=== PATIENT | female | born 1930 | race Caucasian/White ===

== ENCOUNTER → 2016-06-22 | Outpatient (CLI) | payer MEDICARE, BC ==
[~2016-06-22] MED LIST: /PANT40TA OR; /VERA40TA OR; AMOX875T OR; BENI20TA11 OR; CALCGRA15 PO; ESTRADIOL PV; LASI40TA PO; MULTTAB4 PO; Oxygen; PRED10TA2 PO; PROL60SO SC; ROSU10TA OR; SYNT75TA OR; SYSTSOL5 OU; TYLE325T5 PO; VITAD1000T PO; ZITH500T PO; nystatin powder TOP
[2016-06-22 18:05] LABS: CALCIUM LEVEL 9.1 MG/DL (8.8-10.2); CREATININE FOR GFR 1.5 MG/DL (0.55-1.02); GLOMERULAR FILTRATION RATE 35.1 (>32); POTASSIUM SERUM 4.1 MEQ/L (3.5-5.1)
== END ==
LOC: M WUC 11:31
PROVIDERS: ATTEND Internal Medicine Endocrinology, Diabetes & Metabolism
DX: M81.0 Age-related osteoporosis without current pathological fracture (principal); E55.9 Vitamin D deficiency, unspecified

== ENCOUNTER → 2016-12-14 | Outpatient (CLI) | payer MEDICARE, BC ==
[~2016-12-14] MED LIST changes: -/PANT40TA OR; +/PANT40TA PO; +ELIQ2.5T PO; +ELIQ5TAB PO; +FURO20TA2 PO; -ROSU10TA OR; +ROSU10TA PO; -SYNT75TA OR; +SYNT75TA PO; +SYST1SOL OU; +VERA1TAB11 PO; +VITMTA PO
[2016-12-14 13:44] LABS: BASO % 0.6 % (0.0-1.0); EOS # 0.1 K/mm3 (0.0-0.50); EOS % 1.6 % (0.0-3.0); LARGE UNSTAINED CELL # 0.2 K/mm3 (0.0-0.4); LARGE UNSTAINED CELL % 2.7 % (0.0-4.0); LYMPH # 1.4 K/mm3 (1.5-4.5); LYMPH % 19.9 % (24.0-44.0); MEAN CORPUSCULAR HGB CONC 33.3 g/dl (32.0-36.5); MONO # 0.5 K/mm3 (0.0-0.8); MONO % 7.6 % (0.0-5.0); NEUTROPHILS # 4.6 K/mm3 (1.8-7.7); NEUTROPHILS % 67.6 % (36.0-66.0); PLATELET COUNT, AUTOMATED 210 k/mm3 (150-450); WHITE BLOOD COUNT 6.8 K/mm3 (4.0-10.0)
[2016-12-14 13:56] LABS: ALBUMIN 3.8 GM/DL (3.2-5.2); ALBUMIN/GLOBULIN RATIO 1.06 (1.00-1.93); BILIRUBIN,TOTAL 0.5 MG/DL (0.2-1.0); CALCIUM LEVEL 9.6 MG/DL (8.8-10.2); CREATININE FOR GFR 1.17 MG/DL (0.55-1.02); FREE T4 1.27 NG/DL (0.76-1.46); GLOMERULAR FILTRATION RATE 46.7 (>32); POTASSIUM SERUM 4.4 MEQ/L (3.5-5.1); TOTAL PROTEIN 7.4 GM/DL (6.4-8.2)
== END ==
LOC: M WUC 09:46
PROVIDERS: ATTEND Family Medicine
DX: E03.9 Hypothyroidism, unspecified (principal); I10 Essential (primary) hypertension; I65.23 Occlusion and stenosis of bilateral carotid arteries; Z86.73 Personal history of transient ischemic attack (TIA), and cerebral infarction without residual deficits

== ENCOUNTER → 2016-12-14 | Outpatient (CLI) | payer MEDICARE, BC ==
[2016-12-14 13:32] LABS: BASO # 0.1 K/mm3 (0.0-0.2); EOS # 0.1 K/mm3 (0.0-0.50); EOS % 1.8 % (0.0-3.0); LARGE UNSTAINED CELL # 0.1 K/mm3 (0.0-0.4); LARGE UNSTAINED CELL % 2.2 % (0.0-4.0); LYMPH # 1.2 K/mm3 (1.5-4.5); LYMPH % 19.4 % (24.0-44.0); MEAN CORPUSCULAR HEMOGLOBIN 33.5 pg (27.0-33.0); MEAN CORPUSCULAR HGB CONC 33.8 g/dl (32.0-36.5); MEAN CORPUSCULAR VOLUME 99.1 fl (80.0-96.0); MONO # 0.5 K/mm3 (0.0-0.8); MONO % 7.6 % (0.0-5.0); NEUTROPHILS # 4.3 K/mm3 (1.8-7.7); PLATELET COUNT, AUTOMATED 195 k/mm3 (150-450); WHITE BLOOD COUNT 6.4 K/mm3 (4.0-10.0)
[2016-12-14 13:51] LABS: ALBUMIN 3.8 GM/DL (3.2-5.2); ALBUMIN/GLOBULIN RATIO 1.03 (1.00-1.93); BILIRUBIN,TOTAL 0.6 MG/DL (0.2-1.0); CALCIUM LEVEL 9.7 MG/DL (8.8-10.2); CREATININE FOR GFR 1.16 MG/DL (0.55-1.02); GLOMERULAR FILTRATION RATE 47.2 (>32); POTASSIUM SERUM 4.3 MEQ/L (3.5-5.1); TOTAL PROTEIN 7.5 GM/DL (6.4-8.2)
== END ==
LOC: M WUC 09:50
PROVIDERS: ATTEND Psychiatry & Neurology Neurology
DX: I65.23 Occlusion and stenosis of bilateral carotid arteries (principal); Z86.73 Personal history of transient ischemic attack (TIA), and cerebral infarction without residual deficits

== ENCOUNTER → 2016-12-14 | Outpatient (CLI) | payer MEDICARE, BC ==
[2016-12-14 13:37] LABS: CALCIUM LEVEL 9.9 MG/DL (8.8-10.2)
== END ==
LOC: M WUC 09:40
PROVIDERS: ATTEND Internal Medicine Endocrinology, Diabetes & Metabolism
DX: M81.0 Age-related osteoporosis without current pathological fracture (principal); E55.9 Vitamin D deficiency, unspecified

== ENCOUNTER → 2017-01-23 | Outpatient (REF) | payer MEDICARE, BC ==
[~2017-01-23] MED LIST changes: +LEVO50TA5 PO; +MAG400TA PO
[2017-01-23 17:45] LABS: BASO # 0.1 10^3/uL (0.0-0.2); BASO % 0.8 % (0.0-1.0); EOS # 0.1 10^3/uL (0.0-0.50); EOS % 1.5 % (0.0-3.0); IMMATURE GRANULOCYTE % 0.5 % (0-0); LYMPH # 1.2 10^3/uL (1.5-4.5); MEAN CORPUSCULAR HEMOGLOBIN 32.6 pg (27.0-33.0); MEAN CORPUSCULAR HGB CONC 32.3 g/dl (32.0-36.5); MONO # 0.7 10^3/uL (0.0-0.8); NEUTROPHILS # 4.5 10^3/uL (1.8-7.7); NEUTROPHILS % 69.2 % (36.0-66.0); PLATELET COUNT, AUTOMATED 184 10^3/uL (150-450); RED CELL DISTRIBUTION WIDTH 13.6 % (11.5-14.5); WHITE BLOOD COUNT 6.5 10^3/uL (4.0-10.0)
[2017-01-23 18:08] LABS: ALBUMIN 3.6 GM/DL (3.2-5.2); ALBUMIN/GLOBULIN RATIO 1.13 (1.00-1.93); BILIRUBIN,TOTAL 0.5 MG/DL (0.2-1.0); CALCIUM LEVEL 7.8 MG/DL (8.8-10.2); CREATININE FOR GFR 1.29 MG/DL (0.55-1.02); GLOMERULAR FILTRATION RATE 41.7 (>32); TOTAL PROTEIN 6.8 GM/DL (6.4-8.2)
== END ==
LOC: M LABDRAW1 15:49
PROVIDERS: ATTEND Family Medicine
DX: I48.91 Unspecified atrial fibrillation (principal)

== ENCOUNTER 2017-02-07 12:14 | Inpatient (IN) | payer MEDICARE, BC ==
[~2017-02-07] VITALS: Ht 162.6 cm; Wt 53.4 kg
[~2017-02-07 12:14] MED LIST changes: -ELIQ2.5T PO; -ELIQ5TAB PO; -FURO20TA2 PO; -LEVO50TA5 PO; -MAG400TA PO; -SYST1SOL OU; -VERA1TAB11 PO; -VITMTA PO
[2017-02-07] MEDS ORDERED: ELIQ5TAB PO (12:29)
[2017-02-07] MEDS ORDERED: NS 500 ML IV ONE (13:00)
--- NOTE | 2017-02-07 13:30 | REP ---
CT of the brain without IV contrast. Comparisons are 02/10/2010 02/09/2010. There is no hemorrhage. There is no mass effect, edema, or midline shift. There is an old right frontal lobe infarct, unchanged. There is an old left caudate lobe lacunar infarct, unchanged. The ventricles and sulci are enlarged compatible with diffuse volume loss. This is unchanged. Ventricles are normal size and midline. The cortical stripe is otherwise unremarkable. Impression: There is no hemorrhage, acute infarct or mass. There is an old right frontal lobe infarct and old left caudate ganglion infarct. There is diffuse volume loss. Signed by Petros Corcoran MD 02/07/2017 01:21 P
[2017-02-07 13:34] LABS: VENOUS BASE EXCESS 4.3 (-2.0-2.0); VENOUS O2 SATURATION 48.1 % (60.0-80.0); VENOUS PARTIAL PRESSURE CO2 44.7 mmHg (38.0-50.0); VENOUS PARTIAL PRESSURE O2 28.6 mmHg (30.0-50.0); VENOUS STANDARD HCO3 27.3 MEQ/L; VENOUS TOTAL CO2 30.5 MEQ/L (24.0-28.0)
[2017-02-07 13:35] LABS: BASO % 0.6 % (0.0-1.0); EOS % 0.4 % (0.0-3.0); IMMATURE GRANULOCYTE % 0.3 % (0-0); LYMPH # 0.8 10^3/uL (1.5-4.5); LYMPH % 11.2 % (24.0-44.0); MEAN CORPUSCULAR HEMOGLOBIN 32.3 pg (27.0-33.0); MEAN CORPUSCULAR HGB CONC 32.2 g/dl (32.0-36.5); MEAN CORPUSCULAR VOLUME 100.3 fl (80.0-96.0); MONO # 0.7 10^3/uL (0.0-0.8); NEUTROPHILS # 5.5 10^3/uL (1.8-7.7); NEUTROPHILS % 77.5 % (36.0-66.0); PLATELET COUNT, AUTOMATED 163 10^3/uL (150-450); WHITE BLOOD COUNT 7.1 10^3/uL (4.0-10.0)
[2017-02-07 14:00] LABS: ALBUMIN 3.8 GM/DL (3.2-5.2); ALBUMIN/GLOBULIN RATIO 1.15 (1.00-1.93); ALKALINE PHOSPHATASE 54 U/L (45-117); ALT/SGPT 22 U/L (12-78); ANION GAP 12 MEQ/L (8-16); AST/SGOT 22 U/L (7-37); BILIRUBIN,DIRECT 0.3 MG/DL (0.0-0.2); BILIRUBIN,TOTAL 0.7 MG/DL (0.2-1.0); BLOOD UREA NITROGEN 29 MG/DL (7-18); CALCIUM LEVEL 9.6 MG/DL (8.8-10.2); CARBON DIOXIDE LEVEL 29 MEQ/L (21-32); CHLORIDE LEVEL 100 MEQ/L (98-107); CREATININE FOR GFR 1.51 MG/DL (0.55-1.02); GLOMERULAR FILTRATION RATE 34.7 (>32); GLUCOSE, FASTING 110 MG/DL (83-110); POTASSIUM SERUM 3.5 MEQ/L (3.5-5.1); SODIUM LEVEL 141 MEQ/L (136-145); TOTAL PROTEIN 7.1 GM/DL (6.4-8.2)
--- NOTE | 2017-02-07 14:27 | REP ---
Chest AP and lateral views, patient sitting: Signed by Petros Corcoran MD 02/07/2017 02:19 P
[2017-02-07] MEDS ORDERED: FUROSEMIDE 40 MG/4 ML VIAL (J1940) IV ONE (14:45)
[2017-02-07 14:55] LABS: METHADONE URINE NEGATIVE (NEGATIVE)
[2017-02-07] MEDS ORDERED: ACETAMINOPHEN TAB 650MG DOSE (2X325MG) PO PRN ×2 (15:30→18:15)
[2017-02-07 15:49] LABS: FERRITIN 123 NG/ML (8-252); PERCENT SATURATION 21.7 % (13.2-45.0); TOTAL IRON BINDING CAPACITY 267 UG/DL (250-450)
[2017-02-07] MEDS ORDERED: VERA1TAB11 PO (16:03)
[2017-02-07] MEDS ORDERED: FURO20TA2 PO (16:03)
[2017-02-07] MEDS ORDERED: VITMTA PO (16:03)
[2017-02-07] MEDS ORDERED: ELIQ2.5T PO (16:03)
[2017-02-07] MEDS ORDERED: SYST1SOL OU (16:03)
[2017-02-07] MEDS ORDERED: LEVALBUTEROL 1.25 MG/0.5 ML CONCENTRATE NEB INH PRN (16:15)
[2017-02-07] MEDS ORDERED: POLYVINYL ALCOHOL OPHTH SOLN 15 ML(LIQUITEARS) OU PRN (16:15)
--- NOTE | 2017-02-07 16:43 | REP ---
CT of the chest without IV contrast: Comparison is 09/13/2012. There is a large right pleural effusion and a moderate left pleural effusion. There are ground-glass densities in the middle lobe and lingula compatible with acute infiltrates. There is diffuse interstitial coarsening. This was also present previously and could represent fibrosis, interstitial edema, or combination. There is subpleural honeycombing in the left lower lobe laterally compatible with fibrosis. This is present previously but has worsened. Cardiac size is enlarged. There is no pericardial effusion. There is no mediastinal adenopathy or mass. Thoracic aorta is unremarkable. The visualized upper abdominal contents are unremarkable except for splenic calcified granulomas. Impression: Large right pleural effusion, moderate left pleural effusion. Ground-glass densities in the middle lobe and lingula compatible with alveolar infiltrates. Interstitial coarsening compatible with interstitial infiltrates versus fibrosis. Some pleural honeycombing in the right lower lobe compatible with fibrosis. Cardiomegaly. Signed by Petros Corcoran MD 02/07/2017 04:34 P
[2017-02-07] MEDS ORDERED: FUROSEMIDE 20 MG/2 ML VIAL (J1940) IV SCH (17:00)
[2017-02-07 17:24] VITALS: BP 125/69
[2017-02-07 18:11] LABS: FOLATE > 24.0 NG/ML (>5.4); VITAMIN B12 LEVEL > 2000 PG/ML (247-911)
[2017-02-07] MEDS: LACTOBACILLUS ACIDOPHILUS CAP (BACID) PO SCH (18:11)
[2017-02-07] MEDS: cefTRIAXone SOD 1 GM in D5W 50 ML IV SCH (18:12)
[2017-02-07] MEDS ORDERED: BISACODYL 5 MG TAB PO PRN (18:15)
[2017-02-07] MEDS ORDERED: ONDANSETRON 4MG/2ML VIAL (J2405) IV PRN (18:15)
[2017-02-07] MEDS ORDERED: POTASSIUM CHLORIDE 10 MEQ SR TABLET PO ONE (18:45)
[2017-02-07 18:48] LABS: MAGNESIUM LEVEL 1.2 MG/DL (1.8-2.4)
[2017-02-07 19:09] LABS: RETIC HEMOGLOBIN EQUIVALENT 36.6 pg (24-36); RETICULOCYTE % 1.7 % (0.5-1.5)
[2017-02-07 19:15] LABS: FREE T4 2.24 NG/DL (0.76-1.46)
[2017-02-07 19:45] LABS: ERYTHROCYTE SEDIMENTATION RATE 41 mm/hr (0-42)
[2017-02-07 20:00] VITALS: BP 114/56
[2017-02-07] MEDS ORDERED: SLF 3 ML SYR IV PRN (20:45)
[2017-02-07] MEDS: APIXABAN 2.5 MG TAB (ELIQUIS) PO SCH (20:57)
[2017-02-07] MEDS: SENOKOT S TAB PO SCH (20:57)
[2017-02-07] MEDS: SLF 3 ML SYR IV SCH (20:58)
--- NOTE | 2017-02-07 21:53 | HPE ---
DATE OF ADMISSION: 02/07/2017 Time patient was seen was at 5:30 p.m. Patient's primary care provider is Dr. Evelyn Lainez. Pumping Supervisor is Dr. Parth Dixon. CHIEF COMPLAINT: Shortness of breath and confusion. HISTORY OF PRESENT ILLNESS: 87-year-old female with past medical history of CVA from 2005, osteoporosis, right shoulder fracture, history of pneumonia, atrial fibrillation, intracranial hemorrhage, hypothyroidism, hypertension, gastroesophageal reflux disease (GERD), hiatal hernia, presented with shortness of breath and confusion. Per patient, she has been having trouble breathing for the past 3 days[address] She did see Dr. Dixon yesterday and recommended to wear an event monitor. She was going to pick it up today, however, she was walking up a few steps and got confused and then ended up in the emergency room. Per patient, she never passed out and she did not fall. She recovered momentarily in the emergency room after she was placed on oxygen. Patient's daughter also stated she has been having trouble breathing for at least a few months and had used oxygen 3 years ago when she had pneumonia back in roughly 2012. She also has been coughing for a few days and the cough was mostly a dry cough. Otherwise, she denies any fever or chills, any chest pain, any abdominal pain, nausea, vomiting, diarrhea, constipation, any blood in the urine or stool, any increased swelling in the lower extremities. ALLERGIES: No known drug allergies. HOME MEDICATIONS: Including: - Tylenol 650 mg one tablet by mouth every 4 hours as needed - Eliquis 2.5 mg one tablet by mouth twice a day - calcium citrate two tablets by mouth three times a day - furosemide 20 mg one tablet by mouth daily - Synthroid 75 mcg one tablet by mouth daily - multivitamin one tablet by mouth daily - Protonix 40 mg one tablet by mouth daily - polyethylene glycol one droplet in each eye four times a day as needed - Prolia one every 6 months - Crestor 10 mg one tablet by mouth daily - verapamil 180 mg one tablet by mouth daily - vitamin D 5000 units one tablet by mouth PAST MEDICAL HISTORY: Includin. Osteoporosis. 2. 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 3. Right shoulder fracture. 4. History of pneumonia. 5. Atrial fibrillation. 6. Intracranial bleed. 7. Hypothyroidism. 8. Hypertension. 9. GERD. 10. Hiatal hernia. PAST SURGICAL HISTORY: Includin. Hysterectomy. 2. Left leg varicose vein repair. 3. Bladder suspension in 1993. 4. Unspecified cartilage removal of the right nose. 5. Right cataract repair in 2000. 6. Left cataract repair in 1999. 7. Adhesiolysis, bilateral salpingo-oophorectomy and appendectomy back in 1998. 8. 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 SOCIAL HISTORY: Patient lives with her daughter. Denies any smoking, drinking, or recreational drug use. Do not resuscitate status: Patient's proxy is her grandson. However, her daughter is adding to the proxy. FAMILY HISTORY: Patient's mother at 93, father in his 60s, had coronary artery disease and myocardial infarction (ME). REVIEW OF SYSTEMS: GENERAL: Patient admits to some weight changes, however daughter disagrees. Otherwise, denies any fever or chills. Denies any sick contact or recent traveling. HEENT: Denies any changes with vision, smell, hearing or taste. However, patient does have slurred speech from previous CVA. CARDIOVASCULAR: Denies any chest pain, trouble breathing. Denies any palpitations or racing heart beat. Patient, however, has seen Dr. Dixon just yesterday and was told to have an event recorder done today. PULMONARY: Admits to shortness of breath for a few months and got worse for the past 3 days. Admits to cough. Denies any sputum. GASTROINTESTINAL (GI): Denies any abdominal pains, nausea, vomiting, diarrhea, or constipation. GENITOURINARY (): Denies any problem with urination, dysuria, blood in the urine. MUSCULOSKELETAL: Denies any pain anywhere. ENDOCRINE: Denies any polydipsia or polyuria or any heat intolerance. Patient feels cold all the time. SKIN: Denies any moles, ulcerations, lumps, or bumps anywhere. Denies any rash. PSYCHIATRIC: Denies any anxiety or depression. NEUROLOGIC: Denies any new changes in sensation or any weakness on any one side of her body. PHYSICAL EXAMINATION: VITAL SIGNS: Temperature 98.9, pulse 106, respirations 108, blood pressure 116/71, oxygen was saturating at 94% on 2 liters of nasal cannula. During the interview, patient was off nasal cannula and was able to carry on normal conversation without difficulties. GENERAL: Patient is a thin-looking elderly female who was alert, awake, oriented times three. Appears to be in mild distress, lying comfortably in bed with head elevated at 30 degrees. HEENT: Normocephalic, atraumatic. Extraocular motors intact. Mucous moist. Neck supple. No neck lymphadenopathy. CARDIOVASCULAR: Jugular venous distention (JVD) was noted all the way to the lower jaw bilaterally. Otherwise, patient was having irregular heart beat and has an at least 3/6 systolic heart murmur. LUNGS: Reduced breathing sounds in bilateral bases and dulled percussion in bilateral base. ABDOMEN: Positive bowel sounds. Soft, nontender, nondistended. No peritoneal signs. No ecchymosis. EXTREMITIES: Trace pitting edema in bilateral lower extremities. SKIN: Warm and dry. NEUROLOGIC: Cranial nerves II-XII intact except for the slurred speech. LABORATORY DATA: WBC 7.1, hemoglobin 10.5, hematocrit 32.6, with a platelet count of 162, an MCV of 100.3. Sodium 141, potassium 3.5, chloride 100, bicarbonate 29, anion gap was 12, BUN 29, creatinine 1.51, GFR 34.7, fasting glucose 110, calcium 9.6, iron 58, TIBC 267, transferrin percentage was 21.7, ferritin 128, total bilirubin 0.7, direct bilirubin 0.3, AST 22, ALT 22, alkaline phosphatase 54, ammonia level less than 10, CK 98, CK-MB 2.1, troponin 0.02, BNP was very elevated 10,746, protein 7.1, albumin 3.8, B12 level was greater than 2000, folate was greater than 24, TSH 1.58, free T4 is pending, reticulocyte count is pending. Urinalysis shows 1+ blood, 2 leukocyte esterase, 53 WBCs, 4 RBCs, 3+ bacteria. Salicylate was less than 1.7. Barbiturate less than 2. Urine drug screen was negative. Methicillin-resistant Staphylococcus aureus (MRSA) screening was pending. Urine culture was pending. Patient had a CT head without contrast. Shows no hemorrhage, no acute infarct or mass. There was an old right frontal lobe infarct and old left caudate ganglion infarct. Patient had a posteroanterior (PA) and lateral chest x-ray shows interstitial markings diffusely coarsened, interval change compatible with pulmonary edema. Patient had a CT of chest, shows large right pleural effusion, moderate left pleural effusion, ground-glass density in the middle lobe and lingula compatible with alveolar infiltrate, interstitial coarsening compatible with interstitial infiltrates versus fibrosis. Some pleural honeycombing in the right lower lobe compatible with fibrosis. Cardiomegaly. ASSESSMENT AND PLAN: 87-year-old female with multiple comorbidities, more significantly CVA with slurred speech as a residual, chronic atrial fibrillation, intracranial bleed, hypothyroidism, hypertension, gastroesophageal reflux disease (GERD), hiatal hernia, osteoporosis, presented with: 1. Altered mental status, likely secondary to possible urinary tract infection (UTI) versus possible pneumonia versus hypoxia from large pleural effusion on the right side. At this point, patient does not have a white count and no fever and no chills. C-reactive protein (CRP) and erythrocyte sedimentation rate (ESR) has been ordered, will follow. Patient was started on Rocephin in the emergency room, will continue. Patient has also been started on Lasix 20 mg IV twice a day, will continue. Will monitor strict intake and output. Continue patient on 2 liters of fluid restriction and restricted sodium. 2. Possible congestive heart failure (CHF) exacerbation with a brain natriuretic peptide (BNP) of 10,746. Patient also has jugular venous distention (JVD), pulmonary edema and pleural effusion. Echocardiogram has been ordered, will followup. She did have a previous echo back in 2012, shows ejection fraction of 65%. Will continue to diurese her. 3. Large right-sided pleural effusion. Will continue to monitor to see if there is reduction with increased diuresis usage. Possibly need thoracentesis if symptom does not improve. 4. Possible community-acquired pneumonia. However, patient does not have any fever or white count. Rocephin has been started empirically for both possible pneumonia and possible urinary tract infection (UTI). Will continue to monitor. 5. Possible urinary tract infection (UTI). Patient does have a positive urinalysis. However, patient does not have any dysuria, burning on urination, or discomfort on urination. Patient, however, does have confusion. Will continue Rocephin for now. If patient has a negative urine culture will stop the Rocephin. 6. Anemia with hemoglobin of 10.5 and MCV of 100.3. Iron study and B12 folate came back negative. Therefore, the macrocytic anemia possibly secondary to underproduction versus chronic disease. Will continue to monitor. 7. Chronic kidney disease stage III with creatinine of 1.5. Baseline is roughly 1.2. Possibly due to cardiorenal syndrome. Continue to monitor. Continue Lasix for now. 8. Right-sided shoulder pain which was chronic from right shoulder fracture. Continue to monitor. Pain medication as needed. 9. Osteoporosis. Continue Prolia outpatient. 10. History of CVA with slurred speech, however no trouble eating. Continue regular food that is sodium restricted and also fluid restricted. 11. History of atrial fibrillation, on Eliquis. Continue to monitor. Patient was scheduled for a Holter monitor, however, she did not go to do it before she got admitted. Therefore, patient will be monitored under telemetry. 12. History of intracranial bleed, stable. Continue to monitor. 13. Hypothyroidism. Continue to monitor. 14. History of hypertension. Continue patient's blood pressure medication with hold parameters. 15. History of gastroesophageal reflux disease (GERD). Continue home proton pump inhibitor (PPI). 16. Deep venous thrombosis (DVT) prophylaxis, on home Eliquis. 17. Fluids, electrolytes, and nutrition. Patient did receive 100 mL bolus in the emergency room, also received Lasix. At this point, patient likely has congestive heart failure (CHF) exacerbation, therefore will hold any IV fluid. Patient's potassium was slightly under goal, will replete. Continue patient on sodium restricted diet and fluid restricted diet. DISPOSITION: Patient likely has congestive heart failure (CHF) exacerbation with pleural effusion on the right side greater than on the left side. Also, possible urinary tract infection (UTI) and possible pneumonia. Will discontinue antibiotic once culture comes back negative and will followup erythrocyte sedimentation rate (ESR) and C-reactive protein (CRP), and there is a possibility for thoracentesis if symptom does not improve. Patient has been discussed with attending doctor, Dr. Renae. My preceptor for this patient encounter was Dr. Heidi Renae. The preceptor was physically present in the building during the encounter and was fully available. As needed, all aspects of the patient interview, examination, medical decision making process, and medical care plan development were reviewed and approved by the preceptor. The preceptor is aware and concurs with the plan as stated in the body of this note and will attest to such by his/her cosignature.
--- NOTE | 2017-02-07 21:56 | ECGEPIP ---
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
[2017-02-07] MEDS ORDERED: HEPARIN SOD (PORCINE) 5000 UNITS/ML VIAL SC SCH (22:00)
[2017-02-07 23:59] VITALS: BP 122/57
[2017-02-08 04:00] VITALS: BP 128/60
[2017-02-08 05:18] LABS: BASO % 0.5 % (0.0-1.0); EOS # 0.1 10^3/uL (0.0-0.50); IMMATURE GRANULOCYTE % 0.4 % (0-0); IONIZED CALCIUM 4.4 MG/DL (4.5-5.3); LYMPH # 0.9 10^3/uL (1.5-4.5); LYMPH % 11.3 % (24.0-44.0); MEAN CORPUSCULAR HEMOGLOBIN 32.1 pg (27.0-33.0); MEAN CORPUSCULAR HGB CONC 31.9 g/dl (32.0-36.5); MEAN CORPUSCULAR VOLUME 100.3 fl (80.0-96.0); MONO # 0.9 10^3/uL (0.0-0.8); MONO % 10.8 % (0.0-5.0); NEUTROPHILS # 6.2 10^3/uL (1.8-7.7); PLATELET COUNT, AUTOMATED 164 10^3/uL (150-450); RED CELL DISTRIBUTION WIDTH 13.8 % (11.5-14.5); WHITE BLOOD COUNT 8.2 10^3/uL (4.0-10.0)
[2017-02-08 05:40] LABS: CALCIUM LEVEL 9.2 MG/DL (8.8-10.2); CREATININE FOR GFR 1.44 MG/DL (0.55-1.02); GLOMERULAR FILTRATION RATE 36.7 (>32); POTASSIUM SERUM 3.9 MEQ/L (3.5-5.1)
[2017-02-08] MEDS: SLF 3 ML SYR IV SCH ×3 (05:48→21:49)
[2017-02-08 05:53] LABS: MAGNESIUM LEVEL 1.1 MG/DL (1.8-2.4)
[2017-02-08] MEDS ORDERED: LEVOTHYROXINE 75MCG TABLET (0.075MG) PO SCH (06:00)
--- NOTE | 2017-02-08 07:53 | REP ---
Portable chest, AP view, the patient semi upright, 06:53 a.m.: Comparison is 02/07/2017. The interstitial infiltrates have significantly worsened, vertically in the right lung. There are now accompanying alveolar infiltrates in the right. The interstitial coarsening in the left lung is unchanged. Cardiac size is enlarged. By CT there are bilateral pleural effusions. Advanced deforming arthropathy of the right shoulder is again noted. Impression: Significantly increasing infiltrates in the right lung. Bilateral pleural effusions by CT. No Signed by Petros Corcoran MD 02/08/2017 07:45 A
[2017-02-08 08:00] VITALS: BP 113/57
[2017-02-08] MEDS ORDERED: FUROSEMIDE 20 MG/2 ML VIAL (J1940) IV ONE (08:00)
[2017-02-08] MEDS ORDERED: MAG SULF 1GM/100ML (MAG RUN) 1 GM in APPROPRIATE DILUENT 1 EA IV ONE ×2 (08:00→09:00)
[2017-02-08] MEDS: SENOKOT S TAB PO SCH ×2 (08:31→21:48)
[2017-02-08] MEDS: ROSUVASTATIN 10 MG TAB (CRESTOR) PO SCH (08:31)
[2017-02-08] MEDS: PANTOPRAZOLE 40MG TAB (PROTONIX) PO SCH (08:31)
[2017-02-08] MEDS: LACTOBACILLUS ACIDOPHILUS CAP (BACID) PO SCH ×3 (08:31→17:26)
[2017-02-08] MEDS: MULTIVITAMINS/MINERALS THERAP 1 TAB PO SCH (08:31)
[2017-02-08] MEDS: APIXABAN 2.5 MG TAB (ELIQUIS) PO SCH ×2 (08:31→21:48)
[2017-02-08] MEDS: VERAPAMIL 180 MG SR TAB PO SCH (08:32)
[2017-02-08] MEDS: VITAMIN D 1,000 INTERNATIONAL UNITS TABLET PO SCH (08:32)
[2017-02-08 10:10] LABS: ERYTHROCYTE SEDIMENTATION RATE 35 mm/hr (0-42)
[2017-02-08] MEDS: AZITHROMYCIN INJ 500 MG, VIAL MATE ADAPTER 1 EACH in D5W 250 ML IV SCH (10:55)
[2017-02-08] MEDS: FUROSEMIDE 20 MG/2 ML VIAL (J1940) IV SCH ×4 (10:55→21:49)
[2017-02-08] MEDS: LIDOCAINE 5% (LIDODERM) PATCH TD SCH (11:20)
[2017-02-08 12:00] VITALS: BP 125/59
--- NOTE | 2017-02-08 13:36 | IPNPDOC ---
Text Note Date of Service The patient was seen on 02/08/17. 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 Patient was seen and examined at the bedside. Patient admits to breathing better today. Denies any fever/chill, chest pain, abdominal pain, nausea, vomiting, diarrhea, constipation, blood in urine or stool. Patient's daughter complaint of her has been having hearing hallucination, she also reported her mother fail again over the past few months and landed on the right shoulder. Objective: Vitals (See below) General: Thin looking elderly female, lying in bed, no acute distress, comfortable, AAOx3 HEENT: NC, AT CVS: Irregular heart beat, + Systolic murmur Lungs: moderate rales b/l Abdomen: Soft, ND, NT Extremities: trace + pitting edema b/l, right shoulder tenderness which is chronic CXR PA/Lat: increased density on the right side Assessment and plan: Altered mental status, likely 2/2 to UTI vs. possible pneumonia vs. hypoxia from pleural effusion and pulmonary edema - Continue started on 02/07/17 Rocephin day 2 - Started 02/08/17 Azithromycin day 1 due to worsening CXR and CRP - Increased Lasix 02/08/17 - Strict Ins/Outs - 2L Fluid restriction, Na restriction Acute decompensated CHF exacerbation - Improved JVD, worsening CXR - Lasix increased - Echo result pending Large right sided pleural effusion - Stable - C/W lasix Possible CAP - C/W Rocephin and azithromycin Possible UTI - Culture was contaminated - C/W Rocephin Anemia, macrocytic - CKD stage III - improving Right shoulder pain with chronic fracture - Lidoderm patch 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 Heaton. GME ATTESTATION My preceptor for this patient encounter was physically present in the building during the encounter and was fully available. As needed, all aspects of the patient interview, examination, medical decision making process, and medical care plan development were reviewed and approved by the preceptor. Preceptor is aware and concurs with the plan as stated in the body of this note and will attest to such by his/her cosignature. VS,Fishbone, I+O VS, Fishbone, I+O Laboratory Tests 02/07/17 13:24 Red Blood Count 3.25 L, Mean Corpuscular Volume 100.3 H, Mean Corpuscular Hemoglobin 32.3, Mean Corpuscular Hemoglobin Concent 32.2, Red Cell Distribution Width 14.0, Neutrophils (%) (Auto) 77.5 H, Lymphocytes (%) (Auto) 11.2 L, Monocytes (%) (Auto) 10.0 H, Eosinophils (%) (Auto) 0.4, Basophils (%) ( Auto) 0.6, Neutrophils # (Auto) 5.5, Lymphocytes # (Auto) 0.8 L, Monocytes # ( Auto) 0.7, Eosinophils # (Auto) 0.0, Basophils # (Auto) 0.0 02/08/17 05:01 Red Blood Count 3.12 L, Mean Corpuscular Volume 100.3 H, Mean Corpuscular Hemoglobin 32.1, Mean Corpuscular Hemoglobin Concent 31.9 L, Red Cell Distribution Width 13.8, Neutrophils (%) (Auto) 76.0 H, Lymphocytes (%) (Auto) 11.3 L, Monocytes (%) (Auto) 10.8 H, Eosinophils (%) (Auto) 1.0, Basophils (%) ( Auto) 0.5, Neutrophils # (Auto) 6.2, Lymphocytes # (Auto) 0.9 L, Monocytes # ( Auto) 0.9 H, Eosinophils # (Auto) 0.1, Basophils # (Auto) 0.0, Calcium Level 9.2 , Total Creatine Kinase 82 Vital Signs Date Time Temp Pulse Resp B/P (MAP) Pulse Ox O2 Delivery O2 Flow Rate FiO2 11/1/17 12:00 97.7 89 20 125/59 (81) 98 Nasal Cannula 3.0 I&O- Last 24 Hours up to 6 AM 02/09/17 06:00 Intake Total 440 ml Output Total 602 ml Balance -162 ml VINNY ESTRADA DO Feb 08, 2017 13:36 ANTONIO HEATON MD Feb 26, 2017 20:35
[2017-02-08 16:00] VITALS: BP 132/53
[2017-02-08] MEDS: cefTRIAXone SOD 1 GM in D5W 50 ML IV SCH (17:26)
[2017-02-08 19:51] VITALS: BP 109/53
[2017-02-08] MEDS: **NOTE PATIENT COMMENT** MISC XX SCH (21:00)
[2017-02-08 21:30] VITALS: BP 112/62
--- NOTE | 2017-02-08 22:21 | ECHO ---
DATE OF PROCEDURE: 02/08/2017 REFERRING PHYSICIAN: Heidi Renae MD PATIENT LOCATION: Room 3225 REASON FOR ECHOCARDIOGRAM: Shortness of breath. 2D MEASUREMENTS: IVS: 0.86 cm LV: 3.7 cm LVPW: 0.92 cm LA: 4.5 cm Aorta: 3.0 cm DOPPLER MEASUREMENTS: Peak velocity across the aortic valve: 0.82 m/s Peak velocity across the LVOT: 0.58 m/s Mitral E: 1.3 Maximum tricuspid valve velocity: 2.8 m/s 2D COMMENTS: 1. Normal left ventricular size, wall thickness and low normal global left ventricular systolic function. The estimated global left ventricular systolic ejection fraction is 55 to 60%. 2. Mildly enlarged left atrium. The right atrium and the right ventricle also appear to be mildly enlarged. 3. The atrial septum appeared to be normal without evidence of defect or shunt. 4. Normal aortic root. 5. Small pericardial effusion was noted. No evidence of cardiac tamponade. Pleural effusion was noted. 6. Mildly calcified aortic valve with normal leaflet excursion. Mildly calcified mitral annulus with normal anterior mitral valve leaflet motion. Normal tricuspid valve and pulmonic valve. The proximal pulmonary artery branches were not well visualized. 7. The inferior vena cava was not well visualized. DOPPLER: It detects mild aortic regurgitation, moderately severe mitral regurgitation and mild to moderate tricuspid regurgitation. The calculated pulmonary artery systolic pressure varied between 40 to 50 mmHg. Assessment of the left ventricular diastolic function was limited. The patient appears to be in atrial fibrillation. IMPRESSION: 1. Low normal global left ventricular systolic function. Assessment of the left ventricular diastolic function was limited in view of the underlying arrhythmias. 2. Aortic valve sclerosis with mild aortic regurgitation. 3. Mitral annulus calcification with mildly enlarged left atrium and moderately severe mitral regurgitation. 4. Mild to moderate tricuspid regurgitation with moderate pulmonary hypertension and dilated right heart chambers. 5. A small pericardial effusion was noted, no evidence of cardiac tamponade. Pleural effusion also noted. Cannot rule out small amount of fluid around the liver. The patient might benefit from an abdomen ultrasound looking for ascites. MTDD
[2017-02-09] VITALS (8 sets, daily range): BP systolic 94–121; BP diastolic 52–88
[2017-02-09] MEDS: FUROSEMIDE 20 MG/2 ML VIAL (J1940) IV SCH ×4 (02:37→17:33)
[2017-02-09 05:19] LABS: BASO # 0.1 10^3/uL (0.0-0.2); BASO % 0.5 % (0.0-1.0); EOS # 0.2 10^3/uL (0.0-0.50); EOS % 2.4 % (0.0-3.0); IMMATURE GRANULOCYTE % 0.3 % (0-0); LYMPH # 1.1 10^3/uL (1.5-4.5); LYMPH % 11.4 % (24.0-44.0); MEAN CORPUSCULAR HEMOGLOBIN 32.7 pg (27.0-33.0); MEAN CORPUSCULAR HGB CONC 32.6 g/dl (32.0-36.5); MEAN CORPUSCULAR VOLUME 100.3 fl (80.0-96.0); NEUTROPHILS # 6.9 10^3/uL (1.8-7.7); NEUTROPHILS % 74.4 % (36.0-66.0); PLATELET COUNT, AUTOMATED 158 10^3/uL (150-450); RED CELL DISTRIBUTION WIDTH 13.8 % (11.5-14.5); WHITE BLOOD COUNT 9.2 10^3/uL (4.0-10.0)
[2017-02-09] MEDS: LEVOTHYROXINE 50MCG TABLET (0.05MG) PO SCH (05:28)
[2017-02-09] MEDS: SLF 3 ML SYR IV SCH ×3 (05:28→21:16)
[2017-02-09 05:38] LABS: CALCIUM LEVEL 8.8 MG/DL (8.8-10.2); CREATININE FOR GFR 1.52 MG/DL (0.55-1.02); GLOMERULAR FILTRATION RATE 34.4 (>32); POTASSIUM SERUM 3.2 MEQ/L (3.5-5.1)
[2017-02-09] MEDS: SENOKOT S TAB PO SCH ×2 (08:40→21:00)
[2017-02-09 08:43] LABS: MAGNESIUM LEVEL 1.6 MG/DL (1.8-2.4)
[2017-02-09] MEDS: LACTOBACILLUS ACIDOPHILUS CAP (BACID) PO SCH ×3 (09:21→17:32)
[2017-02-09] MEDS: VERAPAMIL 180 MG SR TAB PO SCH (09:45)
[2017-02-09] MEDS ORDERED: MAG SULF 1GM/100ML (MAG RUN) 1 GM in APPROPRIATE DILUENT 1 EA IV ONE (10:15)
[2017-02-09] MEDS: LIDOCAINE 5% (LIDODERM) PATCH TD SCH (10:35)
[2017-02-09] MEDS: APIXABAN 2.5 MG TAB (ELIQUIS) PO SCH ×2 (10:36→21:15)
[2017-02-09] MEDS: MULTIVITAMINS/MINERALS THERAP 1 TAB PO SCH (10:36)
[2017-02-09] MEDS: VITAMIN D 1,000 INTERNATIONAL UNITS TABLET PO SCH (10:36)
[2017-02-09] MEDS: PANTOPRAZOLE 40MG TAB (PROTONIX) PO SCH (10:36)
[2017-02-09] MEDS: ROSUVASTATIN 10 MG TAB (CRESTOR) PO SCH (10:36)
[2017-02-09] MEDS: AZITHROMYCIN INJ 500 MG, VIAL MATE ADAPTER 1 EACH in D5W 250 ML IV SCH (10:37)
[2017-02-09] MEDS: POTASSIUM CHLORIDE 10 MEQ SR TABLET PO SCH ×2 (10:51→21:15)
--- NOTE | 2017-02-09 11:45 | IPNPDOC ---
Text Note Date of Service The patient was seen on 02/09/17. 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 Patient was seen and examined at the bedside. Patient feels about the same today. Denies any fever/chill, chest pain, abdominal pain, nausea, vomiting, diarrhea, constipation, blood in urine or stool. Denies any other current new complaints. Objective: Vitals (See below) General: Thin looking elderly female, lying in bed, no acute distress, comfortable, AAOx3 HEENT: NC, AT CVS: Irregular heart beat, + Systolic murmur Lungs: Diminished breath sounds at the bases. No wheezing/rhonchi Abdomen: Soft, ND, NT Extremities: trace trace pitting edema b/l CXR PA/Lat: increased density on the right side Assessment and plan: Altered mental status, likely 2/2 to UTI vs. possible pneumonia vs. hypoxia from pleural effusion and pulmonary edema - Continue started on 02/07/17 Rocephin day 3 - Started 02/08/17 Azithromycin day 2 due to worsening CXR and CRP - reduced lasix to 20 mg bid - Strict Ins/Outs - 2L Fluid restriction, Na restriction Acute decompensated CHF exacerbation - Improved JVD, worsening CXR - Lasix increased - Echo 02/08/17: EF 55% Large right sided pleural effusion - improved on repeat CXR - C/W Lasix Possible CAP - C/W Rocephin and azithromycin Possible UTI - Culture was contaminated - C/W Rocephin Anemia, macrocytic Hypokalemia -repleted CKD stage III - improving Right shoulder pain with chronic fracture - Lidoderm patch 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 Heaton. GME ATTESTATION My preceptor for this patient encounter was physically present in the building during the encounter and was fully available. As needed, all aspects of the patient interview, examination, medical decision making process, and medical care plan development were reviewed and approved by the preceptor. Preceptor is aware and concurs with the plan as stated in the body of this note and will attest to such by his/her cosignature. VS,Fishbone, I+O VS, Fishbone, I+O Laboratory Tests 02/09/17 04:54 Red Blood Count 3.21 L, Mean Corpuscular Volume 100.3 H, Mean Corpuscular Hemoglobin 32.7, Mean Corpuscular Hemoglobin Concent 32.6, Red Cell Distribution Width 13.8, Neutrophils (%) (Auto) 74.4 H, Lymphocytes (%) (Auto) 11.4 L, Monocytes (%) (Auto) 11.0 H, Eosinophils (%) (Auto) 2.4, Basophils (%) ( Auto) 0.5, Neutrophils # (Auto) 6.9, Lymphocytes # (Auto) 1.1 L, Monocytes # ( Auto) 1.0 H, Eosinophils # (Auto) 0.2, Basophils # (Auto) 0.1, Calcium Level 8.8 Vital Signs Date Time Temp Pulse Resp B/P (MAP) Pulse Ox O2 Delivery O2 Flow Rate FiO2 02/09/17 04:56 97.0 91 18 121/58 (79) 90 Nasal Cannula 3.0 I&O- Last 24 Hours up to 6 AM 02/10/17 06:00 Output Total 200 ml Balance -200 ml VINNY ESTRADA DO Feb 09, 2017 08:21 ANTONIO HEATON MD Feb 26, 2017 20:46
--- NOTE | 2017-02-09 13:00 | REP ---
Follow-up PA and lateral chest: Comparison is 02/08/2017. The bilateral infiltrates have significantly improved, particularly on the right. There are bilateral pleural effusions. Cardiac size is enlarged. Deforming arthropathy of the right shoulder is unchanged. Impression: Improved bilateral infiltrates. Persisting bilateral pleural effusions. Signed by Petros Corcoran MD 02/09/2017 12:52 P
[2017-02-09] MEDS: cefTRIAXone SOD 1 GM in D5W 50 ML IV SCH (17:32)
[2017-02-09] MEDS: **NOTE PATIENT COMMENT** MISC XX SCH (21:00)
[2017-02-10] VITALS (26 sets, daily range): BP systolic 52–120; BP diastolic 42–57
[2017-02-10] MEDS: LEVOTHYROXINE 50MCG TABLET (0.05MG) PO SCH (05:04)
[2017-02-10] MEDS: SLF 3 ML SYR IV SCH ×3 (05:04→20:27)
[2017-02-10 06:59] LABS: BASO # 0.1 10^3/uL (0.0-0.2); BASO % 0.6 % (0.0-1.0); EOS # 0.2 10^3/uL (0.0-0.50); EOS % 2.7 % (0.0-3.0); IMMATURE GRANULOCYTE % 0.4 % (0-0); LYMPH % 11.9 % (24.0-44.0); MEAN CORPUSCULAR HEMOGLOBIN 32.3 pg (27.0-33.0); MEAN CORPUSCULAR HGB CONC 32.6 g/dl (32.0-36.5); MEAN CORPUSCULAR VOLUME 99.1 fl (80.0-96.0); MONO # 0.9 10^3/uL (0.0-0.8); MONO % 10.4 % (0.0-5.0); NEUTROPHILS # 6.2 10^3/uL (1.8-7.7); PLATELET COUNT, AUTOMATED 159 10^3/uL (150-450); RED CELL DISTRIBUTION WIDTH 13.9 % (11.5-14.5); WHITE BLOOD COUNT 8.4 10^3/uL (4.0-10.0)
[2017-02-10 07:21] LABS: CALCIUM LEVEL 8.4 MG/DL (8.8-10.2); CREATININE FOR GFR 1.38 MG/DL (0.55-1.02); GLOMERULAR FILTRATION RATE 38.5 (>32); MAGNESIUM LEVEL 1.9 MG/DL (1.8-2.4)
[2017-02-10] MEDS: FUROSEMIDE 20 MG/2 ML VIAL (J1940) IV SCH (08:04)
[2017-02-10] MEDS: PANTOPRAZOLE 40MG TAB (PROTONIX) PO SCH (08:04)
[2017-02-10] MEDS: VITAMIN D 1,000 INTERNATIONAL UNITS TABLET PO SCH (08:04)
[2017-02-10] MEDS: LIDOCAINE 5% (LIDODERM) PATCH TD SCH (08:04)
[2017-02-10] MEDS: MULTIVITAMINS/MINERALS THERAP 1 TAB PO SCH (08:04)
[2017-02-10] MEDS: SENOKOT S TAB PO SCH ×2 (08:04→20:26)
[2017-02-10] MEDS: LACTOBACILLUS ACIDOPHILUS CAP (BACID) PO SCH ×3 (08:05→17:15)
[2017-02-10] MEDS: VERAPAMIL 180 MG SR TAB PO SCH (08:05)
[2017-02-10] MEDS: APIXABAN 2.5 MG TAB (ELIQUIS) PO SCH ×2 (08:05→20:26)
[2017-02-10] MEDS: ROSUVASTATIN 10 MG TAB (CRESTOR) PO SCH (08:06)
--- NOTE | 2017-02-10 10:26 | REP ---
Limited abdominal ultrasound for ascites: All four quadrants of the abdomen and in the central abdomen are scanned by ultrasound. No ascites is identified. There is a right pleural effusion. By CT on 02/07/2017 there were bilateral pleural effusions. Signed by Petros Corcoran MD 02/10/2017 10:18 A
[2017-02-10] MEDS: AZITHROMYCIN INJ 500 MG, VIAL MATE ADAPTER 1 EACH in D5W 250 ML IV SCH (10:36)
[2017-02-10] MEDS ORDERED: SODIUM CHLORIDE 0.9% 1000 ML IV ONE (12:00)
[2017-02-10 12:35] LABS: ABG BASE EXCESS -3.5 (-2.0-2.0); ABG HCO3 20.5 MEQ/L (22.0-26.0); ABG PARTIAL PRESSURE CO2 33.3 mmHg (35.0-45.0); ABG PARTIAL PRESSURE O2 76.2 mmHg (75.0-100.0); ABG STANDARD HCO3 21.5 MEQ/L (22.0-26.0); ABG TOTAL CO2 21.6 MEQ/L (23.0-31.0); ABG pH (ARTERIAL) 7.408 UNITS (7.350-7.450)
[2017-02-10] MEDS ORDERED: NS 1,000 ML IV ONE (13:00)
[2017-02-10] MEDS ORDERED: GLUCAGON FOR INJ 1 MG VIAL (J1610) IV STA (14:22)
[2017-02-10] MEDS ORDERED: NOREPINEPHRINE BITARTRATE 8 MG in D5W 500 ML IV SCH (15:00)
[2017-02-10] MEDS ORDERED: METOCLOPRAMIDE INJ 10MG/2ML VIAL (J2765) IV ONE (16:00)
--- NOTE | 2017-02-10 16:00 | REP ---
Portable chest, 01:59 p.m., single AP view the patient upright: Comparison 02/09/2017. The pulmonary edema has significantly increased vertically in the right upper lobe. Cardiomegaly is identified. I suspect there are bilateral pleural effusions. Chronic changes in the right shoulder as previously discussed. Signed by Petros Corcoran MD 02/10/2017 03:51 P
--- NOTE | 2017-02-10 16:01 | REP ---
Portable chest, 03:35 p.m., single AP view, patient sitting: Comparison is from 01:59 p.m. earlier today. There are bilateral interstitial infiltrates that have worsened, particularly in the right upper lobe from the study earlier today. There are bilateral pleural effusions. There are chronic changes in the right shoulder as previously discussed. Impression: Worsening interstitial infiltrates. No wall Signed by Petros Corcoran MD 02/10/2017 03:53 P
[2017-02-10] MEDS ORDERED: FUROSEMIDE 20 MG/2 ML VIAL (J1940) IV SCH (17:00)
--- NOTE | 2017-02-10 17:02 | ECGEPIP ---
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
[2017-02-10] MEDS: cefTRIAXone SOD 1 GM in D5W 50 ML IV SCH (17:41)
--- NOTE | 2017-02-10 18:19 | CCN ---
DATE: 02/10/2017 CRITICAL CARE TIME: 1 hour and 17 minutes. This excludes all procedures. I was called urgently to attend Ms. Mary Lewis for hypotension. Apparently diuresis was being attempted. Today she presented with increased shortness of breath and pulmonary edema. I placed a central line for consideration of pressors. In the meantime obtained a central venous oxygen saturation of 76. The patient did not complain about anything except for orthopnea and shortness of breath. She has had no fever, chills. She has had some nausea. No diarrhea. No abdominal pain. She is on ceftriaxone for possible pneumonia. PHYSICAL EXAMINATION: Temperature is 96.0, pulse is 87, respiratory rate is 24, blood pressures was 69/44, up to 77/50. The patient awake, mentating. Daughter in the room gave consent for central line that was obtained. After central line was obtained, central venous pressure (CVP) was 15. ScvO2 was 76. Oxygen saturation 96% on 2 liters. GENERAL: The patient is lying in bed awake, oriented to person, place, and time. She appears tachypneic. HEENT: Pupils are dilated with some pupillary defect. Appears to be surgical in nature. Sclerae are clear. Pupils are reactive to light. Mucous membranes are dry. Tongue is midline. She is edentulous. Oropharynx without erythema or exudate. NECK: Supple. No tracheal deviation. There is significant elevation of jugular venous pulse (JVP). There is also distension of the external jugular vein bilaterally. CARDIAC: Regular S1, S2 with decreased heart sounds at the apex. There is a grade 2/6 systolic murmur, heard best at the left lower sternal border. I do not auscultate a rub. No significant lower extremity edema. PULMONARY: Decreased breath sounds throughout. No rhonchi or wheeze. There is dullness to percussion bilaterally. Minimal accessory muscle use. ABDOMEN: Soft, nontender, nondistended. No splenomegaly. Slightly enlarged liver span. No bruits over the large vessels of the abdomen. SKIN: Pale without rashes, jaundice, or bruising. No lower extremity edema. MUSCULOSKELETAL: Decreased but normal for stated age. NEUROLOGIC: No unilateral weakness, tremor. IMPRESSION: 1. Hypotension. Appears to be cardiogenic in nature rather than sepsis. I do not believe she has evidence of hemorrhage or volume loss. She did receive verapamil today which, she had not been receiving before. This could be playing a role. After reviewing the echocardiogram with the business and financial counsel, there is severe mitral regurgitation, which would explain her presentation of congestive heart failure and the difficulty with diuresis. 2. Bilateral pleural effusions. These could be the most likely secondary to volume overload secondary to left-sided dysfunction from mitral regurgitation. Although I would be able to perform thoracentesis, she is on Eliquis, which gives her a high risk of bleeding, and these effusions would likely reaccumulate. 3. Atrial fibrillation with rapid ventricular response (RVR), currently rate controlled. 4. Hypotension. Holding all antihypertensive agents and diuretics at this point in time. PROGNOSIS: Extremely guarded due to the severity of her mitral regurgitation. She is in severe heart failure with pulmonary edema, bilateral pleural effusions. At this point in time, I do not see a reversible cause of her heart failure. Will have further discussions with the patient and family. She identifies her grandson, Wilfredo, as her healthcare proxy.
[2017-02-10 18:57] LABS: CALCIUM LEVEL 7.5 MG/DL (8.8-10.2); CREATININE FOR GFR 2.01 MG/DL (0.55-1.02); GLOMERULAR FILTRATION RATE 24.9 (>32); POTASSIUM SERUM 4.6 MEQ/L (3.5-5.1)
[2017-02-10] MEDS: **NOTE PATIENT COMMENT** MISC XX SCH (20:29)
[2017-02-10] MEDS ORDERED: METOCLOPRAMIDE INJ 10MG/2ML VIAL (J2765) IV PRN (22:00)
[2017-02-11] VITALS (20 sets, daily range): BP systolic 99–114; BP diastolic 44–61
[2017-02-11] MEDS ORDERED: NS 250 ML IV ONE (02:30)
[2017-02-11] MEDS ORDERED: CALCIUM GLUCONATE 1,000 MG in D5W MINI-BAG PLUS 100 ML IV ONE ×2 (03:00→09:00)
--- NOTE | 2017-02-11 03:12 | IPNPDOC ---
Text Note Date of Service The patient was seen on 02/10/17. 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 Patient was seen and examined at the bedside.No acute events over night. We found patient very weak in the bathroom today, she was helped to her bed by nurses and was found having SBP initially in 50s. She was immediately started on 500 ml of normal saline bolus, then another 500 ml of NS bolus. Repeat SBP was in 70s too, therefore she was transferred to ICU, consulted primary health care nurse Dr. Gardiner to put in a central line for possible pressors. Denies any fever/chill, chest pain, abdominal pain, nausea, vomiting, diarrhea, constipation, blood in urine or stool. Denies any other current new complaints. Objective: Vitals (See below) General: Thin looking elderly female, looked pale and flat of expression, lying in bed, moderate distress, AAOx3 HEENT: NC, AT CVS: Irregular heart beat, + Systolic murmur, difficult to auscultation due to increased AP diameter Lungs: Reduced lung sound but it was clear to auscultation Abdomen: Soft, ND, NT Extremities: trace trace pitting edema b/l CXR : Showed increased pulmonary edema Assessment and plan: Severe Hypotension likely multifactorial - Transferred patient to ICU 02/10/17 - Dr. Gardiner, primary health care nurse has been consulted for critical care management and possible thoracentesis for b/l pleural effusion - Possibly secondary Verapamil, which was initially not given due to hold parameter and was given this am and patient's BP subsequently dropped - Echo on 02/08/17 showed: moderately to severe mitral regurgitation, pulmonary hypertension, dilated heart chambers - Other contributing factor including reduced preload after diuresis and severe pulmonary hypertension with severe heart failure - Severe mitral regurgitation causing flow back into patient's lungs likely exacerbated her symptoms. - Continue pressors and will hold for MAP >= 60 nausea, vomiting, diarrhea - Likely due to poor perfusion to GI tracts due to severe hypotension - NPO for now with meds and sips only - Aspiration precaution Altered mental status, likely 2/2 to UTI vs. possible pneumonia vs. hypoxia from pleural effusion and pulmonary edema - Continue started on 02/07/17 Rocephin day 4 - d/c'd Azithromycin due to QTc is becoming prolonged - increased to 40 mg lasix bid - Strict Ins/Outs - 2L Fluid restriction, Na restriction Prolonged QTc on EKG and telemetry - Will monitor closely - Will keep K at goal of 4 - Will keep Mg above 1.6 - Will keep Ca within normal range Acute decompensated CHF exacerbation - worsening CXR - Lasix on HOLD 02/10/17 due to hypotension - Echo 02/08/17: EF 55%, severe mitral regurg, elevated pulmonary hypertension Large right sided pleural effusion - improved on repeat CXR - HOLD Lasix for hypotension - Possible thoracentesis with Dr. Gardiner if patient have increased shortness of breath over the weekend Possible CAP - C/W Rocephin Possible UTI - Culture was contaminated - C/W Rocephin Anemia, macrocytic Hypokalemia -repleted CKD stage III - improving Right shoulder pain with chronic fracture - Lidoderm patch Chronic hearing hallucination - Possible related to dementia - Medications reviewed Hx of CVA with slurred speech - stable Hx of chronic afib - C/W Eliquis - No RVR Hx of intracranial bleed - Initial CT head was negative Hypothyrodism - Elevated Free T4 - Will reduce Levothyroxine to 50 Mcg from 75 mcg HTN - Verapamil Hypomagnesemia - repleted GERD - PPI DVT prophylaxis - c/w Eliquis Fluid, electrolytes, nutrition: No IVF, replete K to 4, NPO except meds and sips for now Code status: DNR/DNI Disposition: Very poor prognosis. Dr. Gardiner and hospitalist team discussed with parking station attendant coremaker bench, suggested that due to severe mitral regurgitation, there is low forward flow to aorta and to rest of body organs, and there is significant backward flow into lungs and patient also has severe pulmonary hypertension. This is not something can be made better with medications for a long run or intermediate period, therefore making patient comfortable should be discussed soon when patient's daughter is in. The prognosis is very poor at this point. Will monitor for blood pressure to improve, then will start to diuresis patient again. In the mean while, she is at high risk for worsening pulmonary edema and high risk for deadly cardiac arrhythmias. Will replete her electrolytes to optimum to reduce the cardiac risks. Patient has been discussed with attending Dr. Heaton. GME ATTESTATION My preceptor for this patient encounter was physically present in the building during the encounter and was fully available. As needed, all aspects of the patient interview, examination, medical decision making process, and medical care plan development were reviewed and approved by the preceptor. Preceptor is aware and concurs with the plan as stated in the body of this note and will attest to such by his/her cosignature. VS,Fishbone, I+O VS, Fishbone, I+O Laboratory Tests 02/10/17 06:15 Red Blood Count 3.22 L, Mean Corpuscular Volume 99.1 H, Mean Corpuscular Hemoglobin 32.3, Mean Corpuscular Hemoglobin Concent 32.6, Red Cell Distribution Width 13.9, Neutrophils (%) (Auto) 74.0 H, Lymphocytes (%) (Auto) 11.9 L, Monocytes (%) (Auto) 10.4 H, Eosinophils (%) (Auto) 2.7, Basophils (%) ( Auto) 0.6, Neutrophils # (Auto) 6.2, Lymphocytes # (Auto) 1.0 L, Monocytes # ( Auto) 0.9 H, Eosinophils # (Auto) 0.2, Basophils # (Auto) 0.1, Calcium Level 8.4 L Vital Signs Date Time Temp Pulse Resp B/P (MAP) Pulse Ox O2 Delivery O2 Flow Rate FiO2 02/10/17 08:05 107 107/53 02/10/17 08:00 97.3 20 93 Nasal Cannula 2.0 I&O- Last 24 Hours up to 6 AM 02/11/17 06:00 Intake Total 600 ml Output Total 300 ml Balance 300 ml VINNY ESTRADA DO Feb 10, 2017 10:33 ANTONIO HEATON MD Feb 26, 2017 21:02
[2017-02-11 04:45] LABS: BASO % 0.5 % (0.0-1.0); EOS # 0.1 10^3/uL (0.0-0.50); EOS % 1.6 % (0.0-3.0); IMMATURE GRANULOCYTE % 0.2 % (0-0); LYMPH # 0.8 10^3/uL (1.5-4.5); LYMPH % 8.5 % (24.0-44.0); MEAN CORPUSCULAR HEMOGLOBIN 32.9 pg (27.0-33.0); MEAN CORPUSCULAR HGB CONC 32.3 g/dl (32.0-36.5); MEAN CORPUSCULAR VOLUME 101.8 fl (80.0-96.0); MONO # 0.7 10^3/uL (0.0-0.8); MONO % 8.1 % (0.0-5.0); NEUTROPHILS # 7.2 10^3/uL (1.8-7.7); NEUTROPHILS % 81.1 % (36.0-66.0); PLATELET COUNT, AUTOMATED 140 10^3/uL (150-450); RED CELL DISTRIBUTION WIDTH 13.8 % (11.5-14.5); WHITE BLOOD COUNT 8.9 10^3/uL (4.0-10.0)
[2017-02-11 05:21] LABS: ALBUMIN 2.7 GM/DL (3.2-5.2); ALBUMIN/GLOBULIN RATIO 0.96 (1.00-1.93); BILIRUBIN,DIRECT 0.2 MG/DL (0.0-0.2); BILIRUBIN,TOTAL 0.5 MG/DL (0.2-1.0); CALCIUM LEVEL 7.2 MG/DL (8.8-10.2); CREATININE FOR GFR 2.03 MG/DL (0.55-1.02); GLOMERULAR FILTRATION RATE 24.7 (>32); MAGNESIUM LEVEL 1.7 MG/DL (1.8-2.4); POTASSIUM SERUM 4.5 MEQ/L (3.5-5.1); TOTAL PROTEIN 5.5 GM/DL (6.4-8.2)
[2017-02-11] MEDS: LEVOTHYROXINE 50MCG TABLET (0.05MG) PO SCH (05:37)
[2017-02-11] MEDS: SLF 3 ML SYR IV SCH ×3 (05:45→20:49)
[2017-02-11] MEDS: SENOKOT S TAB PO SCH ×2 (09:00→20:47)
[2017-02-11] MEDS: LIDOCAINE 5% (LIDODERM) PATCH TD SCH (09:07)
[2017-02-11] MEDS: APIXABAN 2.5 MG TAB (ELIQUIS) PO SCH ×2 (09:08→20:47)
[2017-02-11] MEDS: LACTOBACILLUS ACIDOPHILUS CAP (BACID) PO SCH ×3 (09:08→17:40)
[2017-02-11] MEDS: VITAMIN D 1,000 INTERNATIONAL UNITS TABLET PO SCH (09:08)
[2017-02-11] MEDS: PANTOPRAZOLE 40MG TAB (PROTONIX) PO SCH (09:08)
[2017-02-11] MEDS: MULTIVITAMINS/MINERALS THERAP 1 TAB PO SCH (09:08)
[2017-02-11] MEDS ORDERED: MAG SULF 1GM/100ML (MAG RUN) 1 GM in APPROPRIATE DILUENT 1 EA IV ONE (10:00)
--- NOTE | 2017-02-11 11:00 | RO ---
DATE OF PROCEDURE: 02/10/2017 DICTATED BY: Dr. Luis A Howell for attending doctor, Dr. Gardiner PREPROCEDURE DIAGNOSIS:Severe hypotension, shock POSTPROCEDURE DIAGNOSIS: Severe hypotension, shock PROCEDURE: Central venous catheter placement on the right side, right internal jugular (IJ). ATTENDING DOCTOR: Dr. Ramy Gardiner ACCOUNT MANAGER TRAINEE: Dr. Howell ANESTHESIA: Local INDICATION: Possible Cardiogenic shock and possible IV pressor medication needed A consent was obtained from the patient, and after explaining the risks, benefits and the alternative options, then a time-out was completed verifying correct patient, procedure, site, position, and especially equipment. DESCRIPTION OF PROCEDURE: The patient was placed in dependent position appropriate for central line placement based on the vein to be cannulated. The patient's right neck was prepped and draped in a sterile fashion. 1% lidocaine was used to anesthetize the surrounding skin. A triple lumen catheter was introduced to the right IJ using Seldinger technique under ultrasound guidance. The catheter was threaded smoothly over the guidewire. Appropriate blood return was obtained. Each lumen of the catheter was evacuated of air and flushed with sterile saline. The catheter was then sutured in place to the skin and a sterile dressing applied. Perfusion to the extremity distal to the point of catheter was checked, found to be adequate. Dr. Gardiner has performed the majority of the procedure, resident has helped with suturing. The placement of the catheter was then confirmed with a portable chest x-ray, and it was in adequate position. Estimated blood loss: Less than 3 mL. Patient tolerated the procedure well, and there were no complications. Patient has been discussed with attending doctor, Dr. Gardiner. My preceptor for this patient encounter was Dr. Gardiner. The preceptor was physically present in the building during the encounter and was fully available. As needed, all aspects of the patient interview, examination, medical decision making process, and medical care plan development were reviewed and approved by the preceptor. The preceptor is aware and concurs with the plan as stated in the body of this note and will attest to such by his/her cosignature. See my dictation foe further details. MTDD
--- NOTE | 2017-02-11 12:28 | RO ---
DATE OF PROCEDURE: 02/10/2017 PREPROCEDURE DIAGNOSIS: Hypotension. POSTPROCEDURE DIAGNOSIS: Hypotension. PROCEDURE: Right internal jugular vein triple lumen catheter. SURGEON: Dr. Ramy Gardiner. CREDIT UNION MANAGER: Dr. Luis A Howell. ANESTHESIA: 1% lidocaine introduced subcutaneously. ESTIMATED BLOOD LOSS: Consent was obtained by the patient and the daughter. DESCRIPTION OF PROCEDURE: The patient was prepped and draped in sterile manner with full sterile barrier precautions. The right IJ was prepped and draped in a sterile manner with chlorhexidine prior to the barrier precautions. Time-out was performed with two patient identifiers identifying correct site and correct procedure. The right IJ was then identified under ultrasound. It was very superficial and very distended. Estimated CVP was 14 based on ultrasound. 1% lidocaine was instilled subcutaneously. The [employer] syringe was then easily passed into the IJ with return of venous blood flow. Wire was fed through the needle. Needle was removed. Jasson in the skin was made and the triple-lumen catheter was placed via modified Seldinger technique. There were no complications. All three ports returned venous blood flow and flushed easily. This was sutured in site at [address] Howell. Postprocedure chest x-ray shows adequate placement of the catheter in the distal SVC.
--- NOTE | 2017-02-11 15:42 | IPN ---
DATE: 02/11/2017 Mary is sitting in her bed stating that she feels better than yesterday. She states she has had many visitors throughout the day. She feels slightly tired. I was asked by her primary physician to consider thoracentesis of one of her large pleural effusions. The patient states that she would not want to go through that, as she is 87 years old. I explained the risks and potential benefit of the procedure with the patient, and she continued to have the same view point. She states she is comfortable in bed. She has not been out of bed. Does not notice any increase in dyspnea. No cough, fever, or chills. Temperature is 98.8, pulse is 96, respiratory rate is 20, blood pressure is 112/58, oxygen saturations 92% on 2 liters. Patient is sitting comfortably in bed, speaking full sentences without dyspnea. HEENT: Sclerae clear and anicteric. Pupils equal, react to light. Mucous membranes are moist without lesions. Tongue is midline. Neck is supple. No tracheal deviation or mass. There is elevated jugular venous pulse (JVP) to the angle of the jaw. Cardiac: Variable heart sounds, irregularly irregular with a grade 2/6 systolic ejection murmur that varies in intensity, heard best at the left lower sternal border. Pulmonary: Decreased breath sounds throughout both lung trevizo. Dull to percussion at the bases. Abdomen: Soft, nontender, nondistended. No hepatosplenomegaly or masses. Extremities: No significant pitting edema. Minimal sacral edema. No cyanosis or clubbing. LABORATORY EVALUATION: Shows a white blood cell count of 8.9, hemoglobin 9.7, hematocrit of 28.2, platelet count of 140. Sodium is 140, potassium 4.5, chloride 101, bicarbonate is 30, BUN is 38, creatinine is 2.03, calcium is 7.2, magnesium is 1.7, albumin is 2.7. Chest x-ray from today: Anterior-posterior (AP) film shows continued vascular congestion, bilateral pleural effusions with volume loss, especially on the right. Internal jugular (IJ) is in appropriate position. Decreased chest expansion. IMPRESSION: Congestive heart failure with severe mitral regurgitation, intolerant to rate control and diuresis. The patient refused thoracentesis. States she is too old for this stuff. She wants to be kept comfortable. I had a discussion with the daughter, Claudine, over the phone that she has an irreversible disease, although this may get better over time, that the patient wishes to have no significant interventions. Her care should be focused on palliative measures. The daughter states she does not believe she would be able to take care of her at home and that a group home would be a good placement for her. We also discussed [facility], but both feel that she is not ready for this yet. After this extensive discussion with the patient and her family, will switch to palliative care and consider switching over to comfort measures only when the patient is ready.
--- NOTE | 2017-02-11 16:48 | IPNPDOC ---
Text Note Date of Service The patient was seen on 02/11/17. NOTE Subjective: Patient states her dyspnea is slightly improved. She no longer feels lethargic she did yesterday. Objective: Vitals: (see below) General: No acute distress, laying comfortably in bed. Frail-appearing HEENT: Moist mucous membranes. Neck: No JVD or lymphadenopathy Cardiac: RRR, No murmurs Pulm: Coarse crackles and diminished breath sounds at the bases bilaterally right greater than the left. No wheezing, rhonchi Abd: NT/ND + BS Ext: Trace edema bilateral lower extremities. No cyanosis Labs (see below) Images: Assessment/Plan 1. Acute decompensated diastolic heart failure- attempting to diurese, however developed severe hypotension setting of verapamil. Her diuretics have been on hold for now however we will consider restarting tomorrow for renal function is improving. 2. Bilateral pleural effusions, moderate to large- patient refusing thoracentesis 3. Severe mitral regurg, pulmonary hypertension, dilated chambers likely contributing to patient's underlying hypoxia 4. Severe hypotension resolved, has not required pressor therapy. Status post central line. 5. Altered mental status likely secondary to UTI. Resolved. 6. Acute kidney injury on chronic kidney disease. Will diuretics for now. Likely worsened by her prior episode of hypotension. 7. Right shoulder pain with history of fracture 8. History of CVA 9. History of chronic atrial fibrillation on Eliquis 10. History of intracranial bleed 11. History of hypothyroidism continue Synthroid 13. Hypertension- continue home meds 14. GERD on PPI DVT prophy: Eliquis Prognosis is guarded. Patient would like to entertain palliative measures at this point however would like limited medical treatment to continue. Will likely need placement. VS,Fishbone, I+O VS, Fishbone, I+O Laboratory Tests 02/10/17 18:21 Calcium Level 7.5 L 02/11/17 04:34 Red Blood Count 2.77 L, Mean Corpuscular Volume 101.8 H, Mean Corpuscular Hemoglobin 32.9, Mean Corpuscular Hemoglobin Concent 32.3, Red Cell Distribution Width 13.8, Neutrophils (%) (Auto) 81.1 H, Lymphocytes (%) (Auto) 8.5 L, Monocytes (%) (Auto) 8.1 H, Eosinophils (%) (Auto) 1.6, Basophils (%) ( Auto) 0.5, Neutrophils # (Auto) 7.2, Lymphocytes # (Auto) 0.8 L, Monocytes # ( Auto) 0.7, Eosinophils # (Auto) 0.1, Basophils # (Auto) 0.0 Vital Signs Date Time Temp Pulse Resp B/P (MAP) Pulse Ox O2 Delivery O2 Flow Rate FiO2 02/11/17 12:00 Nasal Cannula 2.0 02/11/17 12:00 98.8 96 20 112/58 (09) 92 I&O- Last 24 Hours up to 6 AM 02/12/17 06:00 Intake Total 240 ml Output Total 215 ml Balance 25 ml ANTONIO VAUGHAN MD Feb 11, 2017 16:48
[2017-02-11] MEDS: **NOTE PATIENT COMMENT** MISC XX SCH (20:49)
[2017-02-12] VITALS: BP 112/58
[2017-02-12 04:00] VITALS: BP 105/68
[2017-02-12 04:42] LABS: BASO # 0.1 10^3/uL (0.0-0.2); BASO % 0.7 % (0.0-1.0); EOS # 0.3 10^3/uL (0.0-0.50); EOS % 3.6 % (0.0-3.0); IMMATURE GRANULOCYTE % 0.4 % (0-0); LYMPH # 0.9 10^3/uL (1.5-4.5); LYMPH % 9.6 % (24.0-44.0); MEAN CORPUSCULAR HEMOGLOBIN 32.6 pg (27.0-33.0); MEAN CORPUSCULAR HGB CONC 32.2 g/dl (32.0-36.5); MONO # 0.9 10^3/uL (0.0-0.8); MONO % 9.5 % (0.0-5.0); NEUTROPHILS % 76.2 % (36.0-66.0); PLATELET COUNT, AUTOMATED 158 10^3/uL (150-450); RED CELL DISTRIBUTION WIDTH 13.8 % (11.5-14.5); WHITE BLOOD COUNT 9.2 10^3/uL (4.0-10.0)
[2017-02-12 04:50] LABS: INR 1.79
[2017-02-12 05:07] LABS: ALBUMIN 2.8 GM/DL (3.2-5.2); ALBUMIN/GLOBULIN RATIO 0.82 (1.00-1.93); BILIRUBIN,DIRECT 0.2 MG/DL (0.0-0.2); BILIRUBIN,TOTAL 0.4 MG/DL (0.2-1.0); CALCIUM LEVEL 8.1 MG/DL (8.8-10.2); CREATININE FOR GFR 1.73 MG/DL (0.55-1.02); GLOMERULAR FILTRATION RATE 29.7 (>32); MAGNESIUM LEVEL 2.1 MG/DL (1.8-2.4); POTASSIUM SERUM 4.1 MEQ/L (3.5-5.1); TOTAL PROTEIN 6.2 GM/DL (6.4-8.2)
[2017-02-12] MEDS: LEVOTHYROXINE 50MCG TABLET (0.05MG) PO SCH (06:05)
[2017-02-12] MEDS: SLF 3 ML SYR IV SCH ×3 (06:05→20:56)
[2017-02-12] MEDS: MULTIVITAMINS/MINERALS THERAP 1 TAB PO SCH (08:48)
[2017-02-12] MEDS: SENOKOT S TAB PO SCH ×2 (08:48→20:56)
[2017-02-12] MEDS: PANTOPRAZOLE 40MG TAB (PROTONIX) PO SCH (08:48)
[2017-02-12] MEDS: LACTOBACILLUS ACIDOPHILUS CAP (BACID) PO SCH ×3 (08:48→17:14)
[2017-02-12] MEDS: APIXABAN 2.5 MG TAB (ELIQUIS) PO SCH ×2 (08:48→20:56)
[2017-02-12] MEDS: LIDOCAINE 5% (LIDODERM) PATCH TD SCH (08:48)
[2017-02-12] MEDS: FUROSEMIDE 20 MG/2 ML VIAL (J1940) IV SCH ×2 (10:38→17:14)
--- NOTE | 2017-02-12 13:59 | IPNPDOC ---
Text Note Date of Service The patient was seen on 02/12/17. NOTE Subjective: Patient states her dyspnea improving. No CP/palpitations. Objective: Vitals: (see below) General: No acute distress, laying comfortably in bed. Frail-appearing HEENT: Moist mucous membranes. Neck: No JVD or lymphadenopathy Cardiac: RRR, No murmurs Pulm: Coarse crackles and diminished breath sounds at the bases bilaterally right greater than the left. No wheezing, rhonchi. No use of accessory muscles. Abd: NT/ND + BS Ext: Trace edema bilateral lower extremities. No cyanosis Labs (see below) Images: Assessment/Plan 1. Acute decompensated diastolic heart failure- attempting to diurese, however developed severe hypotension setting of verapamil. Restart low dose Lasix today. 2. Bilateral pleural effusions, moderate to large- patient refusing thoracentesis. Restarting low dose lasix today. 3. Severe mitral regurg, pulmonary hypertension, dilated chambers likely contributing to patient's underlying hypoxia 4. Severe hypotension resolved, has not required pressor therapy. Status post central line. 5. Altered mental status likely secondary to UTI. Resolved. 6. Acute kidney injury on chronic kidney disease. Will diuretics for now. Likely worsened by her prior episode of hypotension. 7. Right shoulder pain with history of fracture 8. History of CVA 9. History of chronic atrial fibrillation on Eliquis 10. History of intracranial bleed 11. History of hypothyroidism continue Synthroid 13. Hypertension- continue home meds 14. GERD on PPI DVT prophy: Eliquis Prognosis is guarded. Patient would like to entertain palliative measures at this point however would like limited medical treatment to continue. Will likely need placement. VS,Fishbone, I+O VS, Fishbone, I+O Laboratory Tests 02/12/17 04:15 Red Blood Count 2.98 L, Mean Corpuscular Volume 101.0 H, Mean Corpuscular Hemoglobin 32.6, Mean Corpuscular Hemoglobin Concent 32.2, Red Cell Distribution Width 13.8, Neutrophils (%) (Auto) 76.2 H, Lymphocytes (%) (Auto) 9.6 L, Monocytes (%) (Auto) 9.5 H, Eosinophils (%) (Auto) 3.6 H, Basophils (%) ( Auto) 0.7, Neutrophils # (Auto) 7.0, Lymphocytes # (Auto) 0.9 L, Monocytes # ( Auto) 0.9 H, Eosinophils # (Auto) 0.3, Basophils # (Auto) 0.1 Vital Signs Date Time Temp Pulse Resp B/P (MAP) Pulse Ox O2 Delivery O2 Flow Rate FiO2 02/12/17 08:00 Nasal Cannula 2.0 02/12/17 04:00 98.8 108 26 105/68 (24) 93 I&O- Last 24 Hours up to 6 AM 02/13/17 06:00 Intake Total 410 ml Output Total 335 ml Balance 75 ml ANTONIO VAUGHAN MD Feb 12, 2017 13:59
[2017-02-12 18:00] VITALS: BP 111/59
[2017-02-12] MEDS: **NOTE PATIENT COMMENT** MISC XX SCH (20:56)
[2017-02-12 22:00] VITALS: BP 112/58
[2017-02-13 02:00] VITALS: BP 120/58
[2017-02-13] MEDS: LEVOTHYROXINE 50MCG TABLET (0.05MG) PO SCH (05:47)
[2017-02-13] MEDS: SLF 3 ML SYR IV SCH ×3 (05:48→22:00)
[2017-02-13 06:00] VITALS: BP 108/55
[2017-02-13 06:01] LABS: BASO # 0.1 10^3/uL (0.0-0.2); BASO % 0.7 % (0.0-1.0); EOS # 0.4 10^3/uL (0.0-0.50); EOS % 4.8 % (0.0-3.0); IMMATURE GRANULOCYTE % 0.4 % (0-0); LYMPH # 0.8 10^3/uL (1.5-4.5); LYMPH % 9.7 % (24.0-44.0); MEAN CORPUSCULAR HEMOGLOBIN 32.7 pg (27.0-33.0); MEAN CORPUSCULAR HGB CONC 32.5 g/dl (32.0-36.5); MEAN CORPUSCULAR VOLUME 100.7 fl (80.0-96.0); MONO # 0.7 10^3/uL (0.0-0.8); MONO % 8.5 % (0.0-5.0); NEUTROPHILS # 6.4 10^3/uL (1.8-7.7); NEUTROPHILS % 75.9 % (36.0-66.0); PLATELET COUNT, AUTOMATED 163 10^3/uL (150-450); RED CELL DISTRIBUTION WIDTH 13.5 % (11.5-14.5); WHITE BLOOD COUNT 8.4 10^3/uL (4.0-10.0)
[2017-02-13 06:09] LABS: INR 1.47
--- NOTE | 2017-02-13 06:11 | REP ---
AP PORTABLE CHEST: 02/11/2017 at 02:37 PM. Comparison: 02/10/2017, 02/09/2017. Clinical history: Heart failure. Findings: As on yesterday's study, low level of inflation with large cardiac silhouette. There is a right jugular central catheter, tip into the right atrium. Calcified aortic arch. Crowded markings but with extensive alveolar airspace opacities right greater than left with vascular congestion. Bilateral effusions. Advanced degenerative changes of the right shoulder and both AC joints. Impression: 1. Extensive alveolar and interstitial edema. Concurrent pneumonitis difficult to exclude. Effusions present. No significant improvement since yesterday. Signed by Darrion Pickens MD 02/12/2017 06:28 P
[2017-02-13 06:28] LABS: ALBUMIN 2.6 GM/DL (3.2-5.2); ALBUMIN/GLOBULIN RATIO 0.76 (1.00-1.93); BILIRUBIN,DIRECT 0.2 MG/DL (0.0-0.2); BILIRUBIN,TOTAL 0.5 MG/DL (0.2-1.0); CALCIUM LEVEL 8.2 MG/DL (8.8-10.2); CREATININE FOR GFR 1.48 MG/DL (0.55-1.02); GLOMERULAR FILTRATION RATE 35.5 (>32); MAGNESIUM LEVEL 1.8 MG/DL (1.8-2.4); POTASSIUM SERUM 3.9 MEQ/L (3.5-5.1)
[2017-02-13 10:00] VITALS: BP 105/51
[2017-02-13] MEDS: LACTOBACILLUS ACIDOPHILUS CAP (BACID) PO SCH ×3 (10:50→17:33)
[2017-02-13] MEDS: MULTIVITAMINS/MINERALS THERAP 1 TAB PO SCH (10:50)
[2017-02-13] MEDS: APIXABAN 2.5 MG TAB (ELIQUIS) PO SCH ×2 (10:50→20:38)
[2017-02-13] MEDS: PANTOPRAZOLE 40MG TAB (PROTONIX) PO SCH (10:50)
[2017-02-13] MEDS: VITAMIN D 1,000 INTERNATIONAL UNITS TABLET PO SCH (10:50)
[2017-02-13] MEDS: SENOKOT S TAB PO SCH ×2 (10:50→20:37)
[2017-02-13] MEDS: LIDOCAINE 5% (LIDODERM) PATCH TD SCH (10:51)
[2017-02-13] MEDS: FUROSEMIDE 20 MG/2 ML VIAL (J1940) IV SCH ×2 (10:51→17:34)
[2017-02-13 14:00] VITALS: BP 102/51
--- NOTE | 2017-02-13 14:22 | IPNPDOC ---
Text Note Date of Service The patient was seen on 02/13/17. NOTE Subjective: Dyspnea improving. No CP/palpitations. Objective: Vitals: (see below) General: No acute distress, laying comfortably in bed. Frail-appearing HEENT: Moist mucous membranes. Neck: No JVD or lymphadenopathy Cardiac: RRR, No murmurs Pulm: Coarse crackles and diminished breath sounds at the bases bilaterally right greater than the left. No wheezing, rhonchi. No use of accessory muscles. Abd: NT/ND + BS Ext: Trace edema bilateral lower extremities. No cyanosis Labs (see below) Images: Assessment/Plan 1. Acute decompensated diastolic heart failure- restarted on lasix. Attempting to diurese 2. Bilateral pleural effusions, moderate to large- patient refusing thoracentesis. Restartedlow dose lasix today. 3. Severe mitral regurg, pulmonary hypertension, dilated chambers likely contributing to patient's underlying hypoxia 4. Severe hypotension resolved, has not required pressor therapy. Status post central line. 5. Altered mental status likely secondary to UTI. Resolved. 6. Acute kidney injury on chronic kidney disease. Will diuretics for now. Likely worsened by her prior episode of hypotension. 7. Right shoulder pain with history of fracture 8. History of CVA 9. History of chronic atrial fibrillation on Eliquis 10. History of intracranial bleed 11. History of hypothyroidism continue Synthroid 13. Hypertension- continue home meds 14. GERD on PPI DVT prophy: Eliquis Prognosis is guarded. Patient would like to entertain palliative measures at this point however would like limited medical treatment to continue. Will likely need placement. VS,Fishbone, I+O VS, Fishbone, I+O Laboratory Tests 02/13/17 05:48 Red Blood Count 3.03 L, Mean Corpuscular Volume 100.7 H, Mean Corpuscular Hemoglobin 32.7, Mean Corpuscular Hemoglobin Concent 32.5, Red Cell Distribution Width 13.5, Neutrophils (%) (Auto) 75.9 H, Lymphocytes (%) (Auto) 9.7 L, Monocytes (%) (Auto) 8.5 H, Eosinophils (%) (Auto) 4.8 H, Basophils (%) ( Auto) 0.7, Neutrophils # (Auto) 6.4, Lymphocytes # (Auto) 0.8 L, Monocytes # ( Auto) 0.7, Eosinophils # (Auto) 0.4, Basophils # (Auto) 0.1 Vital Signs Date Time Temp Pulse Resp B/P (MAP) Pulse Ox O2 Delivery O2 Flow Rate FiO2 02/13/17 10:00 98.1 96 20 105/51 (69) 97 Nasal Cannula 2.0 I&O- Last 24 Hours up to 6 AM 02/14/17 06:00 Intake Total 120 ml Output Total 200 ml Balance -80 ml ANTONIO VAUGHAN MD Feb 13, 2017 14:22
[2017-02-13 18:00] VITALS: BP 140/78
[2017-02-13] MEDS: **NOTE PATIENT COMMENT** MISC XX SCH (20:39)
[2017-02-13 22:00] VITALS: BP 125/64
[2017-02-14] VITALS (7 sets, daily range): BP systolic 107–130; BP diastolic 52–64
[2017-02-14] MEDS: SLF 3 ML SYR IV SCH ×3 (05:53→21:47)
[2017-02-14] MEDS: LEVOTHYROXINE 50MCG TABLET (0.05MG) PO SCH (05:53)
[2017-02-14] MEDS: SENOKOT S TAB PO SCH ×2 (09:00→21:43)
[2017-02-14] MEDS: NYSTATIN CREAM 15 GM EXT SCH ×2 (09:00→09:29)
[2017-02-14] MEDS: LACTOBACILLUS ACIDOPHILUS CAP (BACID) PO SCH ×3 (09:29→17:27)
[2017-02-14] MEDS: PANTOPRAZOLE 40MG TAB (PROTONIX) PO SCH (09:29)
[2017-02-14] MEDS: MULTIVITAMINS/MINERALS THERAP 1 TAB PO SCH (09:29)
[2017-02-14] MEDS: VITAMIN D 1,000 INTERNATIONAL UNITS TABLET PO SCH (09:29)
[2017-02-14] MEDS: FUROSEMIDE 20 MG/2 ML VIAL (J1940) IV SCH ×2 (09:30→17:27)
[2017-02-14] MEDS: LIDOCAINE 5% (LIDODERM) PATCH TD SCH (09:30)
[2017-02-14] MEDS: APIXABAN 2.5 MG TAB (ELIQUIS) PO SCH ×2 (09:30→21:46)
--- NOTE | 2017-02-14 09:32 | REP ---
Chest x-ray: Two views. History: Shortness of breath. Comparison chest x-ray February 09, 2017 and February 11, 2017. Findings: There are increased markings in the lung parenchyma in the right base, left perihilar region, and right upper perihilar region unchanged from February 09, 2017. Today's radiograph is exposed at a better level of inspiration. There is slight blunting of the lateral pleural angles on both sides. This is probably unchanged as well. Heart is mildly enlarged. EKG monitoring electrodes and oxygen delivery tubing are seen. There is advanced degenerative arthropathy affecting the right shoulder. There are multiple wedge thoracic vertebrae with an exaggerated thoracic kyphosis as a result unchanged as well. Impression: Stable areas of increased lung markings in the perihilar regions and right base. Slight blunting of the pleural angles bilaterally. Mild cardiomegaly unchanged. No new infiltrate. Improved aeration from the most recent prior chest x-ray. Signed by Efrain Betancourt MD 02/14/2017 02:08 P
[2017-02-14 10:04] LABS: BASO # 0.1 10^3/uL (0.0-0.2); BASO % 0.9 % (0.0-1.0); EOS # 0.3 10^3/uL (0.0-0.50); EOS % 3.5 % (0.0-3.0); IMMATURE GRANULOCYTE % 0.1 % (0-0); LYMPH # 0.9 10^3/uL (1.5-4.5); LYMPH % 10.7 % (24.0-44.0); MEAN CORPUSCULAR HEMOGLOBIN 32.1 pg (27.0-33.0); MEAN CORPUSCULAR HGB CONC 31.5 g/dl (32.0-36.5); MEAN CORPUSCULAR VOLUME 101.9 fl (80.0-96.0); MONO # 0.7 10^3/uL (0.0-0.8); MONO % 8.2 % (0.0-5.0); NEUTROPHILS # 6.7 10^3/uL (1.8-7.7); NEUTROPHILS % 76.6 % (36.0-66.0); PLATELET COUNT, AUTOMATED 188 10^3/uL (150-450); RED CELL DISTRIBUTION WIDTH 13.6 % (11.5-14.5); WHITE BLOOD COUNT 8.7 10^3/uL (4.0-10.0)
[2017-02-14 10:20] LABS: INR 1.22
[2017-02-14 10:35] LABS: ALBUMIN/GLOBULIN RATIO 0.86 (1.00-1.93); BILIRUBIN,DIRECT 0.2 MG/DL (0.0-0.2); BILIRUBIN,TOTAL 0.5 MG/DL (0.2-1.0); CALCIUM LEVEL 8.2 MG/DL (8.8-10.2); CREATININE FOR GFR 1.35 MG/DL (0.55-1.02); GLOMERULAR FILTRATION RATE 39.5 (>32); MAGNESIUM LEVEL 1.6 MG/DL (1.8-2.4); POTASSIUM SERUM 3.7 MEQ/L (3.5-5.1); TOTAL PROTEIN 6.5 GM/DL (6.4-8.2)
--- NOTE | 2017-02-14 14:16 | IPNPDOC ---
Text Note Date of Service The patient was seen on 02/14/17. NOTE Subjective: Patient is an 87 year old female with a PMHx of CVA with slurred speech, Intracranial bleed, Atrial fibrillation, HTN, Hypothyroidism, Osteoporosis, Hiatal hernia / GERD who presented to the ER with SOB and confusion. She was found to have a large right sided pleural effusions and signs of decompensated CHF. Patient was seen and examined at the bedside. Currently she notes that she is breathing well. She denies any cough, fever or chills. Denies chest pain. Objective: Vitals (See below) General: Lying in bed, no acute distress, comfortable, AAOx3 HEENT: NC, AT CVS: RRR, +S1S2 Lungs: Crackles at bilateral lung bases Abdomen: Soft, ND, NT Extremities: No appreciable edema bilaterally, - Calf tenderness Assessment and plan: Dyspnea - likely multifactorial - 2/2 Acute decompensated Diastolic CHF and Pleural effusions (R>L) - Clinically has had some improvement - Has been requiring supplemental oxygen - Refused thoracentesis; c/w Diuresis (Furosemide 20 IV BID) - c/w PT and Placement options for senior living care Severe MR, Pulmonary HTN - likely contributing to hypoxia s/p Hypotension - Improved with IV fluid hydration s/p Acute metabolic encephalopathy - likely 2/2 UTI SARAH on CKD3 - c/w Diuretics for now Right shoulder pain with history of fracture History of CVA - with residual slurred speech Chronic atrial fibrillation - c/w rate control with Verapamil and anticoagulation with Eliquis (Risk and benefits discussed between patient and outpatient provider) Hx of Intracranial bleed Hx of Hypothyroidism - c/w Levothyroxine HTN - c/w BP medications GERD / Hiatal hernia - c/w Protonix DVT prophylaxis - c/w full anticoagulation with Eliquis Disposition: - limited medical management - c/w Palliative care VS,Fishbone, I+O VS, Fishbone, I+O Laboratory Tests 02/14/17 09:42 Red Blood Count 3.61 L, Mean Corpuscular Volume 101.9 H, Mean Corpuscular Hemoglobin 32.1, Mean Corpuscular Hemoglobin Concent 31.5 L, Red Cell Distribution Width 13.6, Neutrophils (%) (Auto) 76.6 H, Lymphocytes (%) (Auto) 10.7 L, Monocytes (%) (Auto) 8.2 H, Eosinophils (%) (Auto) 3.5 H, Basophils (%) (Auto) 0.9, Neutrophils # (Auto) 6.7, Lymphocytes # (Auto) 0.9 L, Monocytes # ( Auto) 0.7, Eosinophils # (Auto) 0.3, Basophils # (Auto) 0.1 Vital Signs Date Time Temp Pulse Resp B/P (MAP) Pulse Ox O2 Delivery O2 Flow Rate FiO2 02/14/17 12:45 97.9 100 18 112/62 (79) 96 Nasal Cannula 2.0 I&O- Last 24 Hours up to 6 AM 02/15/17 06:00 Intake Total 240 ml Balance 240 ml NINO PATTEN MD Feb 14, 2017 14:16
[2017-02-14] MEDS: **NOTE PATIENT COMMENT** MISC XX SCH (21:47)
[2017-02-15 06:00] VITALS: BP 135/58
[2017-02-15] MEDS: SLF 3 ML SYR IV SCH ×3 (06:08→20:14)
[2017-02-15] MEDS: LEVOTHYROXINE 50MCG TABLET (0.05MG) PO SCH (06:08)
[2017-02-15 06:36] LABS: BASO # 0.1 10^3/uL (0.0-0.2); BASO % 0.6 % (0.0-1.0); EOS # 0.4 10^3/uL (0.0-0.50); EOS % 4.7 % (0.0-3.0); IMMATURE GRANULOCYTE % 0.2 % (0-0); LYMPH % 11.8 % (24.0-44.0); MEAN CORPUSCULAR HEMOGLOBIN 31.9 pg (27.0-33.0); MEAN CORPUSCULAR HGB CONC 31.9 g/dl (32.0-36.5); MONO # 0.7 10^3/uL (0.0-0.8); MONO % 8.7 % (0.0-5.0); PLATELET COUNT, AUTOMATED 180 10^3/uL (150-450); RED CELL DISTRIBUTION WIDTH 13.5 % (11.5-14.5); WHITE BLOOD COUNT 8.1 10^3/uL (4.0-10.0)
[2017-02-15 06:47] LABS: INR 1.3
[2017-02-15 07:07] LABS: ALBUMIN 2.6 GM/DL (3.2-5.2); ALBUMIN/GLOBULIN RATIO 0.74 (1.00-1.93); BILIRUBIN,DIRECT 0.1 MG/DL (0.0-0.2); BILIRUBIN,TOTAL 0.5 MG/DL (0.2-1.0); CALCIUM LEVEL 8.1 MG/DL (8.8-10.2); CREATININE FOR GFR 1.21 MG/DL (0.55-1.02); GLOMERULAR FILTRATION RATE 44.8 (>32); MAGNESIUM LEVEL 1.4 MG/DL (1.8-2.4); POTASSIUM SERUM 3.2 MEQ/L (3.5-5.1); TOTAL PROTEIN 6.1 GM/DL (6.4-8.2)
[2017-02-15] MEDS ORDERED: POTASSIUM CHLORIDE 10 MEQ SR TABLET PO ONE (08:30)
[2017-02-15] MEDS: SENOKOT S TAB PO SCH ×3 (09:00→20:13)
[2017-02-15] MEDS: NYSTATIN CREAM 15 GM EXT SCH ×2 (09:00→10:37)
[2017-02-15] MEDS: FUROSEMIDE 20 MG/2 ML VIAL (J1940) IV SCH ×2 (09:19→17:44)
[2017-02-15] MEDS: LACTOBACILLUS ACIDOPHILUS CAP (BACID) PO SCH ×3 (09:19→17:44)
[2017-02-15 10:00] VITALS: BP 121/63
[2017-02-15] MEDS: VITAMIN D 1,000 INTERNATIONAL UNITS TABLET PO SCH (10:36)
[2017-02-15] MEDS: APIXABAN 2.5 MG TAB (ELIQUIS) PO SCH ×2 (10:36→20:13)
[2017-02-15] MEDS: LIDOCAINE 5% (LIDODERM) PATCH TD SCH (10:36)
[2017-02-15] MEDS: MULTIVITAMINS/MINERALS THERAP 1 TAB PO SCH (10:37)
[2017-02-15] MEDS: PANTOPRAZOLE 40MG TAB (PROTONIX) PO SCH (10:37)
[2017-02-15 11:00] VITALS: BP 128/62
--- NOTE | 2017-02-15 13:11 | IPNPDOC ---
Text Note Date of Service The patient was seen on 02/15/17. NOTE Subjective: Patient is an 87 year old female with a PMHx of CVA with slurred speech, Intracranial bleed, Atrial fibrillation, HTN, Hypothyroidism, Osteoporosis, Hiatal hernia / GERD who presented to the ER with SOB and confusion. She was found to have a large right sided pleural effusions and signs of decompensated CHF. Patient was seen and examined at the bedside. She notes that she feels well, she is ambulating with her walker. She denies any significant SOB or cough. Denies any chest pain. Objective: Vitals (See below) General: Lying in bed, no acute distress, comfortable, AAOx3 HEENT: NC, AT CVS: RRR, +S1S2 Lungs: Crackles at bilateral lung bases Abdomen: Soft, ND, NT Extremities: No appreciable edema bilaterally, - Calf tenderness Assessment and plan: Dyspnea - likely multifactorial - 2/2 Acute decompensated Diastolic CHF and Pleural effusions (R>L) - Clinically has had some improvement - Has been requiring supplemental oxygen - Refused thoracentesis; c/w Diuresis (Furosemide 20 IV BID) - c/w PT and Placement options for exterminator helper termite care / placement home with 24 hour care Severe MR, Pulmonary HTN - likely contributing to hypoxia s/p Hypotension - s/p IV fluid hydration s/p Acute metabolic encephalopathy - likely 2/2 UTI SARAH on CKD3 - c/w Diuretics for now Right shoulder pain with history of fracture History of CVA - with residual slurred speech Chronic atrial fibrillation - c/w rate control with Verapamil and anticoagulation with Eliquis (Risk and benefits discussed between patient and outpatient provider) Hx of Intracranial bleed Hx of Hypothyroidism - c/w Levothyroxine HTN - c/w BP medications GERD / Hiatal hernia - c/w Protonix DVT prophylaxis - c/w full anticoagulation with Eliquis Disposition: - limited medical management - c/w Palliative care - Patient would like to go home; will need to establish 24 hour prior to this happening - PFS following VS,Fishbone, I+O VS, Fishbone, I+O Laboratory Tests 02/15/17 05:53 Red Blood Count 3.20 L, Mean Corpuscular Volume 100.0 H, Mean Corpuscular Hemoglobin 31.9, Mean Corpuscular Hemoglobin Concent 31.9 L, Red Cell Distribution Width 13.5, Neutrophils (%) (Auto) 74.0 H, Lymphocytes (%) (Auto) 11.8 L, Monocytes (%) (Auto) 8.7 H, Eosinophils (%) (Auto) 4.7 H, Basophils (%) (Auto) 0.6, Neutrophils # (Auto) 6.0, Lymphocytes # (Auto) 1.0 L, Monocytes # ( Auto) 0.7, Eosinophils # (Auto) 0.4, Basophils # (Auto) 0.1 Vital Signs Date Time Temp Pulse Resp B/P (MAP) Pulse Ox O2 Delivery O2 Flow Rate FiO2 02/15/17 10:00 98.5 118 22 121/63 (82) 97 Nasal Cannula 2.0 I&O- Last 24 Hours up to 6 AM 02/16/17 06:00 Intake Total 240 ml Output Total 200 ml Balance 40 ml NINO PATTEN MD Feb 15, 2017 13:11
[2017-02-15] MEDS: **NOTE PATIENT COMMENT** MISC XX SCH (20:15)
[2017-02-15 22:00] VITALS: BP 118/57
[2017-02-16] MEDS: LEVOTHYROXINE 50MCG TABLET (0.05MG) PO SCH (05:27)
[2017-02-16] MEDS: SLF 3 ML SYR IV SCH ×3 (05:28→20:14)
[2017-02-16 06:00] VITALS: BP 117/58
[2017-02-16 07:44] LABS: BASO % 0.5 % (0.0-1.0); EOS # 0.4 10^3/uL (0.0-0.50); IMMATURE GRANULOCYTE % 0.2 % (0-0); LYMPH # 1.4 10^3/uL (1.5-4.5); LYMPH % 16.5 % (24.0-44.0); MEAN CORPUSCULAR HEMOGLOBIN 31.8 pg (27.0-33.0); MEAN CORPUSCULAR HGB CONC 31.7 g/dl (32.0-36.5); MEAN CORPUSCULAR VOLUME 100.3 fl (80.0-96.0); MONO # 0.8 10^3/uL (0.0-0.8); MONO % 9.1 % (0.0-5.0); NEUTROPHILS # 5.9 10^3/uL (1.8-7.7); NEUTROPHILS % 68.7 % (36.0-66.0); PLATELET COUNT, AUTOMATED 183 10^3/uL (150-450); RED CELL DISTRIBUTION WIDTH 13.5 % (11.5-14.5); WHITE BLOOD COUNT 8.7 10^3/uL (4.0-10.0)
[2017-02-16 08:01] LABS: MAGNESIUM LEVEL 1.4 MG/DL (1.8-2.4)
[2017-02-16 08:04] LABS: CREATININE FOR GFR 1.19 MG/DL (0.55-1.02); GLOMERULAR FILTRATION RATE 45.7 (>32); POTASSIUM SERUM 3.9 MEQ/L (3.5-5.1)
[2017-02-16 08:05] LABS: ALBUMIN 2.7 GM/DL (3.2-5.2); ALBUMIN/GLOBULIN RATIO 0.87 (1.00-1.93); BILIRUBIN,TOTAL 0.5 MG/DL (0.2-1.0); TOTAL PROTEIN 5.8 GM/DL (6.4-8.2)
[2017-02-16] MEDS: FUROSEMIDE 20 MG/2 ML VIAL (J1940) IV SCH ×2 (08:20→17:29)
[2017-02-16] MEDS: LIDOCAINE 5% (LIDODERM) PATCH TD SCH (08:21)
[2017-02-16] MEDS: SENOKOT S TAB PO SCH ×2 (08:22→20:13)
[2017-02-16] MEDS: PANTOPRAZOLE 40MG TAB (PROTONIX) PO SCH (08:22)
[2017-02-16] MEDS: LACTOBACILLUS ACIDOPHILUS CAP (BACID) PO SCH ×3 (08:22→17:28)
[2017-02-16] MEDS: MULTIVITAMINS/MINERALS THERAP 1 TAB PO SCH (08:22)
[2017-02-16] MEDS: VITAMIN D 1,000 INTERNATIONAL UNITS TABLET PO SCH (08:22)
[2017-02-16] MEDS: APIXABAN 2.5 MG TAB (ELIQUIS) PO SCH ×2 (08:22→20:13)
[2017-02-16] MEDS: NYSTATIN CREAM 15 GM EXT SCH (08:22)
--- NOTE | 2017-02-16 11:04 | IPNPDOC ---
Text Note Date of Service The patient was seen on 02/16/17. NOTE Subjective: Patient is an 87 year old female with a PMHx of CVA with slurred speech, Intracranial bleed, Atrial fibrillation, HTN, Hypothyroidism, Osteoporosis, Hiatal hernia / GERD who presented to the ER with SOB and confusion. She was found to have a large right sided pleural effusions and signs of decompensated CHF. Patient was seen and examined at the bedside. She has just finished working with OT and was sitting in her chair. She denies any issues currently. She will be working with PT later today. Objective: Vitals (See below) General: Lying in bed, no acute distress, comfortable, AAOx3 HEENT: NC, AT CVS: RRR, +S1S2 Lungs: Crackles at bilateral lung bases Abdomen: Soft, ND, NT Extremities: No appreciable edema bilaterally, - Calf tenderness Assessment and plan: Dyspnea - likely multifactorial - 2/2 Acute decompensated Diastolic CHF and Pleural effusions (R>L) - Clinically continues to improve; still requiring supplemental oxygen - Refused thoracentesis - c/w Furosemide 20 IV BID - c/w PT and Placement options for terminal press operator care / placement home with 24 hour care Severe MR, Pulmonary HTN - likely contributing to hypoxia s/p Hypotension - s/p IV fluid hydration s/p Acute metabolic encephalopathy - likely 2/2 UTI SARAH on CKD3 - c/w Diuretics for now Right shoulder pain with history of fracture History of CVA - with residual slurred speech Chronic atrial fibrillation - c/w rate control with Verapamil - c/w anticoagulation with Eliquis (Risk and benefits discussed between patient and outpatient provider) Hx of Intracranial bleed Hx of Hypothyroidism - c/w Levothyroxine HTN - c/w BP medications GERD / Hiatal hernia - c/w Protonix DVT prophylaxis - c/w full anticoagulation with Eliquis Disposition: - Limited medical management; c/w Palliative care - Patient would like to go home; will need to establish 24 hour prior to this happening - PFS following and working with PT / OT Shin ESPINOSA, I+O Shin ESPINOSA I+O Laboratory Tests 02/16/17 06:50 Red Blood Count 3.18 L, Mean Corpuscular Volume 100.3 H, Mean Corpuscular Hemoglobin 31.8, Mean Corpuscular Hemoglobin Concent 31.7 L, Red Cell Distribution Width 13.5, Neutrophils (%) (Auto) 68.7 H, Lymphocytes (%) (Auto) 16.5 L, Monocytes (%) (Auto) 9.1 H, Eosinophils (%) (Auto) 5.0 H, Basophils (%) (Auto) 0.5, Neutrophils # (Auto) 5.9, Lymphocytes # (Auto) 1.4 L, Monocytes # ( Auto) 0.8, Eosinophils # (Auto) 0.4, Basophils # (Auto) 0.0, Calcium Level 8.0 L , Aspartate Amino Transf (AST/SGOT) 19, Alanine Aminotransferase (ALT/SGPT) 44, Alkaline Phosphatase 57, Total Bilirubin 0.5, Total Protein 5.8 L, Albumin 2.7 L Vital Signs Date Time Temp Pulse Resp B/P (MAP) Pulse Ox O2 Delivery O2 Flow Rate FiO2 02/16/17 06:00 97.6 106 20 117/58 (77) 98 Nasal Cannula 2.0 I&O- Last 24 Hours up to 6 AM 02/17/17 06:00 Intake Total 240 ml Output Total 125 ml Balance 115 ml NINO PATTEN MD Feb 16, 2017 11:04
[2017-02-16 14:00] VITALS: BP 130/58
[2017-02-16] MEDS: **NOTE PATIENT COMMENT** MISC XX SCH (20:14)
[2017-02-16 22:00] VITALS: BP 116/55
[2017-02-17] MEDS: SLF 3 ML SYR IV SCH ×3 (05:26→21:44)
[2017-02-17] MEDS: LEVOTHYROXINE 50MCG TABLET (0.05MG) PO SCH (05:30)
[2017-02-17 06:00] VITALS: BP 108/53
[2017-02-17 06:43] LABS: BASO % 0.5 % (0.0-1.0); EOS # 0.4 10^3/uL (0.0-0.50); EOS % 5.4 % (0.0-3.0); IMMATURE GRANULOCYTE % 0.3 % (0-0); LYMPH # 1.2 10^3/uL (1.5-4.5); LYMPH % 14.9 % (24.0-44.0); MEAN CORPUSCULAR HEMOGLOBIN 32.1 pg (27.0-33.0); MEAN CORPUSCULAR VOLUME 100.3 fl (80.0-96.0); MONO # 0.7 10^3/uL (0.0-0.8); NEUTROPHILS # 5.5 10^3/uL (1.8-7.7); NEUTROPHILS % 69.9 % (36.0-66.0); PLATELET COUNT, AUTOMATED 171 10^3/uL (150-450); RED CELL DISTRIBUTION WIDTH 13.5 % (11.5-14.5); WHITE BLOOD COUNT 7.8 10^3/uL (4.0-10.0)
[2017-02-17 07:09] LABS: ALBUMIN 2.5 GM/DL (3.2-5.2); ALBUMIN/GLOBULIN RATIO 0.69 (1.00-1.93); BILIRUBIN,TOTAL 0.5 MG/DL (0.2-1.0); CALCIUM LEVEL 8.2 MG/DL (8.8-10.2); CREATININE FOR GFR 1.18 MG/DL (0.55-1.02); GLOMERULAR FILTRATION RATE 46.1 (>32); MAGNESIUM LEVEL 1.4 MG/DL (1.8-2.4); POTASSIUM SERUM 3.5 MEQ/L (3.5-5.1); TOTAL PROTEIN 6.1 GM/DL (6.4-8.2)
[2017-02-17] MEDS ORDERED: MAG SULF 1GM/100ML (MAG RUN) 1 GM in APPROPRIATE DILUENT 1 EA IV ONE (08:00)
[2017-02-17] MEDS: SENOKOT S TAB PO SCH ×2 (09:00→21:44)
[2017-02-17] MEDS: PANTOPRAZOLE 40MG TAB (PROTONIX) PO SCH (09:11)
[2017-02-17] MEDS: MULTIVITAMINS/MINERALS THERAP 1 TAB PO SCH (09:11)
[2017-02-17] MEDS: MAGNESIUM OXIDE 400 MG TAB (MAG-OX) PO SCH ×2 (09:11→21:44)
[2017-02-17] MEDS: LACTOBACILLUS ACIDOPHILUS CAP (BACID) PO SCH ×3 (09:11→17:14)
[2017-02-17] MEDS: APIXABAN 2.5 MG TAB (ELIQUIS) PO SCH ×2 (09:11→21:44)
[2017-02-17] MEDS: FUROSEMIDE 20 MG/2 ML VIAL (J1940) IV SCH ×2 (09:12→17:14)
[2017-02-17] MEDS: LIDOCAINE 5% (LIDODERM) PATCH TD SCH (09:12)
[2017-02-17] MEDS: VITAMIN D 1,000 INTERNATIONAL UNITS TABLET PO SCH (09:12)
[2017-02-17] MEDS: NYSTATIN CREAM 15 GM EXT SCH (09:13)
--- NOTE | 2017-02-17 10:36 | IPNPDOC ---
Text Note Date of Service The patient was seen on 02/17/17. NOTE Subjective: Patient is an 87 year old female with a PMHx of CVA with slurred speech, Intracranial bleed, Atrial fibrillation, HTN, Hypothyroidism, Osteoporosis, Hiatal hernia / GERD who presented to the ER with SOB and confusion. She was found to have a large right sided pleural effusions and signs of decompensated CHF. Patient was seen and examined at the bedside. Patient has been working with physical therapy. Has progressed well, showing ability to move up stairs. She does get tired, but is able to rest and continue with PT. Her oxygen requirements have improved. She denies any other problems. Objective: Vitals (See below) General: Lying in bed, no acute distress, comfortable, AAOx3 HEENT: NC, AT CVS: RRR, +S1S2 Lungs: Crackles at bilateral lung bases Abdomen: Soft, ND, NT Extremities: No appreciable edema bilaterally, - Calf tenderness Assessment and plan: Dyspnea - likely multifactorial - 2/2 Acute decompensated Diastolic CHF and Pleural effusions (R>L) - Clinically continues to improve; still requiring supplemental oxygen, however requirement has been decreasing - Refused thoracentesis - c/w Furosemide 20 IV BID - c/w PT and Placement options for intermediate manager care / placement home with 24 hour care Severe MR, Pulmonary HTN - likely contributing to hypoxia s/p Hypotension - s/p IV fluid hydration s/p Acute metabolic encephalopathy - likely 2/2 UTI SARAH on CKD3 - c/w Diuretics for now Right shoulder pain with history of fracture History of CVA - with residual slurred speech Chronic atrial fibrillation - c/w rate control with Verapamil - c/w anticoagulation with Eliquis (Risk and benefits discussed between patient and outpatient provider) Hx of Intracranial bleed Hx of Hypothyroidism - c/w Levothyroxine HTN - c/w BP medications GERD / Hiatal hernia - c/w Protonix DVT prophylaxis - c/w full anticoagulation with Eliquis Disposition: - Limited medical management; c/w Palliative care - Has made progress with Physical therapy and will likely be cleared within a few days - Plan for discharge home after 31/10 supervision has been established Shin ESPINOSA, I+O Shin ESPINOSA, I+O Laboratory Tests 02/17/17 06:29 Red Blood Count 3.08 L, Mean Corpuscular Volume 100.3 H, Mean Corpuscular Hemoglobin 32.1, Mean Corpuscular Hemoglobin Concent 32.0, Red Cell Distribution Width 13.5, Neutrophils (%) (Auto) 69.9 H, Lymphocytes (%) (Auto) 14.9 L, Monocytes (%) (Auto) 9.0 H, Eosinophils (%) (Auto) 5.4 H, Basophils (%) (Auto) 0.5, Neutrophils # (Auto) 5.5, Lymphocytes # (Auto) 1.2 L, Monocytes # ( Auto) 0.7, Eosinophils # (Auto) 0.4, Basophils # (Auto) 0.0, Calcium Level 8.2 L , Aspartate Amino Transf (AST/SGOT) 18, Alanine Aminotransferase (ALT/SGPT) 36, Alkaline Phosphatase 52, Total Bilirubin 0.5, Total Protein 6.1 L, Albumin 2.5 L Vital Signs Date Time Temp Pulse Resp B/P (MAP) Pulse Ox O2 Delivery O2 Flow Rate FiO2 02/17/17 06:00 96.9 113 18 108/53 (71) 92 2.0 02/16/17 22:00 Nasal Cannula NINO PATTEN MD Feb 17, 2017 10:36
[2017-02-17 14:00] VITALS: BP 106/55
[2017-02-17] MEDS: **NOTE PATIENT COMMENT** MISC XX SCH (21:00)
[2017-02-17 22:00] VITALS: BP 125/59
[2017-02-18 06:00] VITALS: BP 108/54
[2017-02-18] MEDS: SLF 3 ML SYR IV SCH ×3 (06:12→21:49)
[2017-02-18] MEDS: LEVOTHYROXINE 50MCG TABLET (0.05MG) PO SCH (06:12)
[2017-02-18 07:15] LABS: BASO # 0.1 10^3/uL (0.0-0.2); EOS # 0.4 10^3/uL (0.0-0.50); EOS % 4.8 % (0.0-3.0); IMMATURE GRANULOCYTE % 0.4 % (0-0); LYMPH # 1.4 10^3/uL (1.5-4.5); LYMPH % 18.2 % (24.0-44.0); MEAN CORPUSCULAR HEMOGLOBIN 32.6 pg (27.0-33.0); MEAN CORPUSCULAR HGB CONC 32.1 g/dl (32.0-36.5); MEAN CORPUSCULAR VOLUME 101.5 fl (80.0-96.0); MONO # 0.6 10^3/uL (0.0-0.8); MONO % 8.1 % (0.0-5.0); NEUTROPHILS # 5.2 10^3/uL (1.8-7.7); NEUTROPHILS % 67.5 % (36.0-66.0); PLATELET COUNT, AUTOMATED 177 10^3/uL (150-450); RED CELL DISTRIBUTION WIDTH 13.5 % (11.5-14.5); WHITE BLOOD COUNT 7.7 10^3/uL (4.0-10.0)
[2017-02-18 07:43] LABS: ALBUMIN/GLOBULIN RATIO 0.91 (1.00-1.93); BILIRUBIN,TOTAL 0.5 MG/DL (0.2-1.0); CALCIUM LEVEL 8.2 MG/DL (8.8-10.2); CREATININE FOR GFR 1.33 MG/DL (0.55-1.02); GLOMERULAR FILTRATION RATE 40.2 (>32); MAGNESIUM LEVEL 1.9 MG/DL (1.8-2.4); POTASSIUM SERUM 3.8 MEQ/L (3.5-5.1); TOTAL PROTEIN 6.3 GM/DL (6.4-8.2)
[2017-02-18] MEDS: NYSTATIN CREAM 15 GM EXT SCH ×2 (09:00→09:48)
[2017-02-18] MEDS: VITAMIN D 1,000 INTERNATIONAL UNITS TABLET PO SCH (09:45)
[2017-02-18] MEDS: APIXABAN 2.5 MG TAB (ELIQUIS) PO SCH ×2 (09:46→21:49)
[2017-02-18] MEDS: MULTIVITAMINS/MINERALS THERAP 1 TAB PO SCH (09:46)
[2017-02-18] MEDS: PANTOPRAZOLE 40MG TAB (PROTONIX) PO SCH (09:46)
[2017-02-18] MEDS: MAGNESIUM OXIDE 400 MG TAB (MAG-OX) PO SCH ×2 (09:46→21:48)
[2017-02-18] MEDS: SENOKOT S TAB PO SCH ×2 (09:46→21:00)
[2017-02-18] MEDS: LACTOBACILLUS ACIDOPHILUS CAP (BACID) PO SCH ×3 (09:46→17:44)
[2017-02-18] MEDS: FUROSEMIDE 20 MG/2 ML VIAL (J1940) IV SCH ×2 (09:47→17:44)
[2017-02-18] MEDS: LIDOCAINE 5% (LIDODERM) PATCH TD SCH (09:47)
--- NOTE | 2017-02-18 11:03 | IPNPDOC ---
Text Note Date of Service The patient was seen on 02/18/17. NOTE Subjective: Patient is an 87 year old female with a PMHx of CVA with slurred speech, Intracranial bleed, Atrial fibrillation, HTN, Hypothyroidism, Osteoporosis, Hiatal hernia / GERD who presented to the ER with SOB and confusion. She was found to have a large right sided pleural effusions and signs of decompensated CHF. Patient was seen and examined at the bedside. Continues to work with physical therapy. Oxygen requirements have improved. Will c/w diuresis until oxygen supplements no longer required. Plan for discharge to home on Monday. Objective: Vitals (See below) General: Lying in bed, no acute distress, comfortable, AAOx3 HEENT: NC, AT CVS: RRR, +S1S2 Lungs: Crackles at bilateral lung bases Abdomen: Soft, ND, NT Extremities: No appreciable edema bilaterally, - Calf tenderness Assessment and plan: Dyspnea - likely multifactorial - 2/2 Acute decompensated Diastolic CHF and Pleural effusions (R>L) - Clinically continues to improve; supplemental oxygen requirements improving ( at 1 liter currently) - No thoracentesis requested at this point - c/w Furosemide 20 IV BID - Will continue to monitor renal function to ensure Cr remains stable - c/w PT and Placement options for director long term care care / placement home with 24 hour care Severe MR, Pulmonary HTN - likely contributing to hypoxia s/p Hypotension - s/p IV fluid hydration s/p Acute metabolic encephalopathy - likely 2/2 UTI s/p SARAH on CKD3 - Baseline Cr of 1.2-1.4 - c/w Diuretics for now - Will follow Cr to ensure diuresis is not worsening renal function Right shoulder pain with history of fracture History of CVA - with residual slurred speech Chronic atrial fibrillation - c/w rate control with Verapamil - c/w anticoagulation with Eliquis (Risk and benefits discussed between patient and outpatient provider) Hx of Intracranial bleed Hx of Hypothyroidism - c/w Levothyroxine HTN - c/w BP medications GERD / Hiatal hernia - c/w Protonix DVT prophylaxis - c/w full anticoagulation with Eliquis Disposition: - Limited medical management; c/w Palliative care - c/w Physical therapy and Plan for discharge on Monday VS,Fishbone, I+O VS, Fishbone, I+O Laboratory Tests 02/18/17 07:01 Red Blood Count 3.25 L, Mean Corpuscular Volume 101.5 H, Mean Corpuscular Hemoglobin 32.6, Mean Corpuscular Hemoglobin Concent 32.1, Red Cell Distribution Width 13.5, Neutrophils (%) (Auto) 67.5 H, Lymphocytes (%) (Auto) 18.2 L, Monocytes (%) (Auto) 8.1 H, Eosinophils (%) (Auto) 4.8 H, Basophils (%) (Auto) 1.0, Neutrophils # (Auto) 5.2, Lymphocytes # (Auto) 1.4 L, Monocytes # ( Auto) 0.6, Eosinophils # (Auto) 0.4, Basophils # (Auto) 0.1, Calcium Level 8.2 L , Aspartate Amino Transf (AST/SGOT) 20, Alanine Aminotransferase (ALT/SGPT) 35, Alkaline Phosphatase 57, Total Bilirubin 0.5, Total Protein 6.3 L, Albumin 3.0 L Vital Signs Date Time Temp Pulse Resp B/P (MAP) Pulse Ox O2 Delivery O2 Flow Rate FiO2 02/18/17 06:00 98.7 117 20 108/54 (72) 94 Nasal Cannula 2.0 I&O- Last 24 Hours up to 6 AM 02/19/17 06:00 Intake Total 180 ml Output Total 175 ml Balance 5 ml NINO PATTEN MD Feb 18, 2017 11:03
[2017-02-18] MEDS: **NOTE PATIENT COMMENT** MISC XX SCH (21:00)
[2017-02-18 22:00] VITALS: BP 108/68
[2017-02-19 05:51] LABS: BASO # 0.1 10^3/uL (0.0-0.2); EOS # 0.3 10^3/uL (0.0-0.50); EOS % 4.4 % (0.0-3.0); IMMATURE GRANULOCYTE % 0.4 % (0-0); LYMPH # 1.4 10^3/uL (1.5-4.5); LYMPH % 18.3 % (24.0-44.0); MEAN CORPUSCULAR HEMOGLOBIN 32.3 pg (27.0-33.0); MEAN CORPUSCULAR HGB CONC 32.4 g/dl (32.0-36.5); MEAN CORPUSCULAR VOLUME 99.7 fl (80.0-96.0); MONO # 0.6 10^3/uL (0.0-0.8); MONO % 8.2 % (0.0-5.0); NEUTROPHILS # 5.2 10^3/uL (1.8-7.7); NEUTROPHILS % 67.7 % (36.0-66.0); PLATELET COUNT, AUTOMATED 188 10^3/uL (150-450); RED CELL DISTRIBUTION WIDTH 13.7 % (11.5-14.5); WHITE BLOOD COUNT 7.7 10^3/uL (4.0-10.0)
[2017-02-19 06:00] VITALS: BP 105/54
[2017-02-19 06:21] LABS: ALBUMIN 2.8 GM/DL (3.2-5.2); ALBUMIN/GLOBULIN RATIO 0.76 (1.00-1.93); BILIRUBIN,TOTAL 0.4 MG/DL (0.2-1.0); CALCIUM LEVEL 8.4 MG/DL (8.8-10.2); CREATININE FOR GFR 1.29 MG/DL (0.55-1.02); GLOMERULAR FILTRATION RATE 41.6 (>32); MAGNESIUM LEVEL 1.8 MG/DL (1.8-2.4); POTASSIUM SERUM 3.7 MEQ/L (3.5-5.1); TOTAL PROTEIN 6.5 GM/DL (6.4-8.2)
[2017-02-19] MEDS: SLF 3 ML SYR IV SCH ×3 (06:28→21:54)
[2017-02-19] MEDS: LEVOTHYROXINE 50MCG TABLET (0.05MG) PO SCH (06:28)
[2017-02-19] MEDS: NYSTATIN CREAM 15 GM EXT SCH ×2 (09:00→10:18)
--- NOTE | 2017-02-19 09:23 | IPNPDOC ---
Text Note Date of Service The patient was seen on 02/19/17. NOTE Subjective: Patient is an 87 year old female with a PMHx of CVA with slurred speech, Intracranial bleed, Atrial fibrillation, HTN, Hypothyroidism, Osteoporosis, Hiatal hernia / GERD who presented to the ER with SOB and confusion. She was found to have a large right sided pleural effusions and signs of decompensated CHF. Patient was seen and examined at the bedside. Spoke with family and they are concerned about her coming home. Advised that we will continue to work with physical therapy Objective: Vitals (See below) General: Lying in bed, no acute distress, comfortable, AAOx3 HEENT: NC, AT CVS: RRR, +S1S2 Lungs: Crackles at bilateral lung bases Abdomen: Soft, ND, NT Extremities: No appreciable edema bilaterally, - Calf tenderness Assessment and plan: Dyspnea - likely multifactorial - 2/2 Acute decompensated Diastolic CHF and Pleural effusions (R>L) - Continues to improve her oxygenation, will aim to get her off supplemental oxygen at rest - No thoracentesis requested at this point - c/w Furosemide 20 IV BID - c/w diuresis and monitor renal function to ensure Cr remains stable - c/w PT and Placement options for terminal supervisor care / placement home with 24 hour care Severe MR, Pulmonary HTN - likely contributing to hypoxia s/p Hypotension - s/p IV fluid hydration s/p Acute metabolic encephalopathy - likely 2/2 UTI s/p SARAH on CKD3 - Baseline Cr of 1.2-1.4 - c/w Diuretics for now - c/w monitoring Cr to ensure diuresis is not worsening renal function Right shoulder pain with history of fracture History of CVA - with residual slurred speech Chronic atrial fibrillation - c/w rate control with Verapamil - c/w anticoagulation with Eliquis (Risk and benefits discussed between patient and outpatient provider) Hx of Intracranial bleed Hx of Hypothyroidism - c/w Levothyroxine HTN - c/w BP medications GERD / Hiatal hernia - c/w Protonix DVT prophylaxis - c/w full anticoagulation with Eliquis Disposition: - Limited medical management; c/w Palliative care - c/w Physical therapy - Plan for discharge home with services vs. placement depending on recommendations VS,Shin, I+O VS, Susannae, I+O Laboratory Tests 02/19/17 05:39 Red Blood Count 3.10 L, Mean Corpuscular Volume 99.7 H, Mean Corpuscular Hemoglobin 32.3, Mean Corpuscular Hemoglobin Concent 32.4, Red Cell Distribution Width 13.7, Neutrophils (%) (Auto) 67.7 H, Lymphocytes (%) (Auto) 18.3 L, Monocytes (%) (Auto) 8.2 H, Eosinophils (%) (Auto) 4.4 H, Basophils (%) (Auto) 1.0, Neutrophils # (Auto) 5.2, Lymphocytes # (Auto) 1.4 L, Monocytes # ( Auto) 0.6, Eosinophils # (Auto) 0.3, Basophils # (Auto) 0.1, Calcium Level 8.4 L , Aspartate Amino Transf (AST/SGOT) 17, Alanine Aminotransferase (ALT/SGPT) 31, Alkaline Phosphatase 52, Total Bilirubin 0.4, Total Protein 6.5, Albumin 2.8 L Vital Signs Date Time Temp Pulse Resp B/P (MAP) Pulse Ox O2 Delivery O2 Flow Rate FiO2 02/19/17 06:00 98.8 101 18 105/54 (71) 94 Nasal Cannula 1.0 I&O- Last 24 Hours up to 6 AM 02/20/17 06:00 Output Total 75 ml Balance -75 ml NINO PATTEN MD Feb 19, 2017 09:23
[2017-02-19] MEDS: LIDOCAINE 5% (LIDODERM) PATCH TD SCH (10:17)
[2017-02-19] MEDS: PANTOPRAZOLE 40MG TAB (PROTONIX) PO SCH (10:18)
[2017-02-19] MEDS: SENOKOT S TAB PO SCH ×2 (10:18→21:00)
[2017-02-19] MEDS: LACTOBACILLUS ACIDOPHILUS CAP (BACID) PO SCH ×3 (10:18→17:29)
[2017-02-19] MEDS: MULTIVITAMINS/MINERALS THERAP 1 TAB PO SCH (10:18)
[2017-02-19] MEDS: MAGNESIUM OXIDE 400 MG TAB (MAG-OX) PO SCH ×2 (10:18→21:53)
[2017-02-19] MEDS: FUROSEMIDE 20 MG/2 ML VIAL (J1940) IV SCH ×2 (10:18→17:29)
[2017-02-19] MEDS: APIXABAN 2.5 MG TAB (ELIQUIS) PO SCH ×2 (10:18→21:53)
[2017-02-19 14:00] VITALS: BP 112/55
[2017-02-19] MEDS: **NOTE PATIENT COMMENT** MISC XX SCH (21:00)
[2017-02-19 22:00] VITALS: BP 114/57
[2017-02-20] MEDS: LEVOTHYROXINE 50MCG TABLET (0.05MG) PO SCH (05:56)
[2017-02-20] MEDS: SLF 3 ML SYR IV SCH ×3 (05:56→22:00)
[2017-02-20 06:00] VITALS: BP 107/58
[2017-02-20 06:05] LABS: BASO # 0.1 10^3/uL (0.0-0.2); BASO % 0.8 % (0.0-1.0); EOS # 0.3 10^3/uL (0.0-0.50); EOS % 4.3 % (0.0-3.0); IMMATURE GRANULOCYTE % 0.5 % (0-0); LYMPH # 1.4 10^3/uL (1.5-4.5); LYMPH % 18.7 % (24.0-44.0); MEAN CORPUSCULAR HEMOGLOBIN 32.6 pg (27.0-33.0); MEAN CORPUSCULAR HGB CONC 32.8 g/dl (32.0-36.5); MEAN CORPUSCULAR VOLUME 99.4 fl (80.0-96.0); MONO # 0.6 10^3/uL (0.0-0.8); MONO % 7.8 % (0.0-5.0); NEUTROPHILS % 67.9 % (36.0-66.0); PLATELET COUNT, AUTOMATED 191 10^3/uL (150-450); RED CELL DISTRIBUTION WIDTH 13.8 % (11.5-14.5); WHITE BLOOD COUNT 7.4 10^3/uL (4.0-10.0)
[2017-02-20 06:40] LABS: ALBUMIN 2.9 GM/DL (3.2-5.2); ALBUMIN/GLOBULIN RATIO 0.78 (1.00-1.93); BILIRUBIN,TOTAL 0.5 MG/DL (0.2-1.0); CALCIUM LEVEL 8.6 MG/DL (8.8-10.2); CREATININE FOR GFR 1.33 MG/DL (0.55-1.02); GLOMERULAR FILTRATION RATE 40.2 (>32); MAGNESIUM LEVEL 1.8 MG/DL (1.8-2.4); POTASSIUM SERUM 3.5 MEQ/L (3.5-5.1); TOTAL PROTEIN 6.6 GM/DL (6.4-8.2)
[2017-02-20] MEDS ORDERED: MAG SULF 1GM/100ML (MAG RUN) 1 GM in APPROPRIATE DILUENT 1 EA IV ONE (07:30)
[2017-02-20] MEDS: LACTOBACILLUS ACIDOPHILUS CAP (BACID) PO SCH ×3 (08:29→17:28)
[2017-02-20] MEDS: SENOKOT S TAB PO SCH ×2 (08:29→20:11)
[2017-02-20] MEDS: MAGNESIUM OXIDE 400 MG TAB (MAG-OX) PO SCH ×2 (08:29→20:11)
[2017-02-20] MEDS: PANTOPRAZOLE 40MG TAB (PROTONIX) PO SCH (08:29)
[2017-02-20] MEDS: VITAMIN D 1,000 INTERNATIONAL UNITS TABLET PO SCH (08:29)
[2017-02-20] MEDS: APIXABAN 2.5 MG TAB (ELIQUIS) PO SCH ×2 (08:29→20:11)
[2017-02-20] MEDS: MULTIVITAMINS/MINERALS THERAP 1 TAB PO SCH (08:29)
[2017-02-20] MEDS: FUROSEMIDE 20 MG/2 ML VIAL (J1940) IV SCH (08:30)
[2017-02-20] MEDS: NYSTATIN CREAM 15 GM EXT SCH (08:30)
[2017-02-20] MEDS: LIDOCAINE 5% (LIDODERM) PATCH TD SCH (08:30)
--- NOTE | 2017-02-20 10:04 | IPNPDOC ---
Text Note Date of Service The patient was seen on 02/20/17. NOTE Subjective: Patient is an 87 year old female with a PMHx of CVA with slurred speech, Intracranial bleed, Atrial fibrillation, HTN, Hypothyroidism, Osteoporosis, Hiatal hernia / GERD who presented to the ER with SOB and confusion. She was found to have a large right sided pleural effusions and signs of decompensated CHF. On 02/19 had a discussion with daughter and she has advised me that she is unable to care for her mother at home. Has described exsections from her mother , including carrying oxygen tanks up and down stairs, being able to cook and clean for herself with no help. I have advised her that this is unlikely to expect given her age and comorbidities and that we will continue to work with physical therapy and move forward with their recommendations. Patient was seen and examined at the bedside. She denies any events overnight. Notes that she feels fine and will be working with physical therapy again to demonstrate consistency with stairs. Objective: Vitals (See below) General: Lying in bed, no acute distress, comfortable, AAOx3 HEENT: NC, AT CVS: RRR, +S1S2 Lungs: Crackles at bilateral lung bases Abdomen: Soft, ND, NT Extremities: No appreciable edema bilaterally, - Calf tenderness Assessment and plan: Dyspnea - likely multifactorial - 2/2 Acute decompensated Diastolic CHF and Pleural effusions (R>L) - Continues to improve her oxygenation, will aim to get her off supplemental oxygen at rest - No thoracentesis requested at this point - Will change Furosemide to 20 PO from IV; c/w diuresis and Cr monitoring - c/w PT and will follow disposition recommendations Severe MR, Pulmonary HTN - likely contributing to hypoxia s/p Hypotension - s/p IV fluid hydration s/p Acute metabolic encephalopathy - likely 2/2 UTI s/p SARAH on CKD3 - Baseline Cr of 1.2-1.4 - c/w Diuretics for now - c/w monitoring Cr to ensure diuresis is not worsening renal function Right shoulder pain with history of fracture History of CVA - with residual slurred speech Chronic atrial fibrillation - c/w rate control with Verapamil - c/w anticoagulation with Eliquis (Risk and benefits discussed between patient and outpatient provider) Hx of Intracranial bleed Hx of Hypothyroidism - c/w Levothyroxine HTN - c/w BP medications GERD / Hiatal hernia - c/w Protonix DVT prophylaxis - c/w full anticoagulation with Eliquis Disposition: - Limited medical management; c/w Palliative care - c/w Physical therapy - Disposition unclear; - Will transition to ALC today VS,Fishbone, I+O VS, Fishbone, I+O Laboratory Tests 02/20/17 05:58 Red Blood Count 3.10 L, Mean Corpuscular Volume 99.4 H, Mean Corpuscular Hemoglobin 32.6, Mean Corpuscular Hemoglobin Concent 32.8, Red Cell Distribution Width 13.8, Neutrophils (%) (Auto) 67.9 H, Lymphocytes (%) (Auto) 18.7 L, Monocytes (%) (Auto) 7.8 H, Eosinophils (%) (Auto) 4.3 H, Basophils (%) (Auto) 0.8, Neutrophils # (Auto) 5.0, Lymphocytes # (Auto) 1.4 L, Monocytes # ( Auto) 0.6, Eosinophils # (Auto) 0.3, Basophils # (Auto) 0.1, Calcium Level 8.6 L , Aspartate Amino Transf (AST/SGOT) 21, Alanine Aminotransferase (ALT/SGPT) 27, Alkaline Phosphatase 50, Total Bilirubin 0.5, Total Protein 6.6, Albumin 2.9 L Vital Signs Date Time Temp Pulse Resp B/P (MAP) Pulse Ox O2 Delivery O2 Flow Rate FiO2 02/20/17 06:00 98.3 98 20 107/58 (74) 92 Nasal Cannula 1.0 I&O- Last 24 Hours up to 6 AM 02/21/17 06:00 Output Total 100 ml Balance -100 ml NINO PATTEN MD Feb 20, 2017 10:04
[2017-02-20 14:00] VITALS: BP 137/72
[2017-02-20] MEDS ORDERED: MAGIC MOUTHWASH SUSPENSION BTL SS ONE (15:00)
[2017-02-20] MEDS: FUROSEMIDE 20 MG TAB PO SCH (17:28)
[2017-02-20] MEDS: **NOTE PATIENT COMMENT** MISC XX SCH (20:11)
[2017-02-20 22:00] VITALS: BP 118/62
[2017-02-21 06:00] VITALS: BP 105/57
[2017-02-21] MEDS: SLF 3 ML SYR IV SCH ×3 (06:09→21:11)
[2017-02-21] MEDS: LEVOTHYROXINE 50MCG TABLET (0.05MG) PO SCH (06:09)
[2017-02-21 06:24] LABS: BASO # 0.1 10^3/uL (0.0-0.2); BASO % 0.8 % (0.0-1.0); EOS # 0.4 10^3/uL (0.0-0.50); EOS % 5.3 % (0.0-3.0); IMMATURE GRANULOCYTE % 0.3 % (0-0); LYMPH # 1.3 10^3/uL (1.5-4.5); LYMPH % 19.5 % (24.0-44.0); MEAN CORPUSCULAR HEMOGLOBIN 32.6 pg (27.0-33.0); MEAN CORPUSCULAR HGB CONC 32.4 g/dl (32.0-36.5); MEAN CORPUSCULAR VOLUME 100.7 fl (80.0-96.0); MONO # 0.5 10^3/uL (0.0-0.8); MONO % 8.2 % (0.0-5.0); NEUTROPHILS # 4.3 10^3/uL (1.8-7.7); NEUTROPHILS % 65.9 % (36.0-66.0); PLATELET COUNT, AUTOMATED 193 10^3/uL (150-450); RED CELL DISTRIBUTION WIDTH 13.8 % (11.5-14.5); WHITE BLOOD COUNT 6.6 10^3/uL (4.0-10.0)
[2017-02-21 06:56] LABS: ALBUMIN 2.6 GM/DL (3.2-5.2); ALBUMIN/GLOBULIN RATIO 0.68 (1.00-1.93); BILIRUBIN,TOTAL 0.4 MG/DL (0.2-1.0); CALCIUM LEVEL 8.5 MG/DL (8.8-10.2); CREATININE FOR GFR 1.21 MG/DL (0.55-1.02); GLOMERULAR FILTRATION RATE 44.8 (>32); MAGNESIUM LEVEL 2.1 MG/DL (1.8-2.4); POTASSIUM SERUM 3.5 MEQ/L (3.5-5.1); TOTAL PROTEIN 6.4 GM/DL (6.4-8.2)
[2017-02-21] MEDS: SENOKOT S TAB PO SCH ×3 (09:00→21:00)
[2017-02-21] MEDS: VITAMIN D 1,000 INTERNATIONAL UNITS TABLET PO SCH (10:30)
[2017-02-21] MEDS: LACTOBACILLUS ACIDOPHILUS CAP (BACID) PO SCH ×3 (10:31→20:38)
[2017-02-21] MEDS: PANTOPRAZOLE 40MG TAB (PROTONIX) PO SCH (10:31)
[2017-02-21] MEDS: MAGNESIUM OXIDE 400 MG TAB (MAG-OX) PO SCH ×2 (10:31→21:10)
[2017-02-21] MEDS: APIXABAN 2.5 MG TAB (ELIQUIS) PO SCH ×2 (10:32→21:10)
[2017-02-21] MEDS: FUROSEMIDE 20 MG TAB PO SCH ×2 (10:32→15:19)
[2017-02-21] MEDS: MULTIVITAMINS/MINERALS THERAP 1 TAB PO SCH (10:32)
[2017-02-21] MEDS: LIDOCAINE 5% (LIDODERM) PATCH TD SCH (10:33)
[2017-02-21] MEDS: NYSTATIN CREAM 15 GM EXT SCH (10:33)
--- NOTE | 2017-02-21 11:06 | IPN ---
DATE: 02/21/2017 The patient is seen and examined at the [facility]– [place]. Chart has been reviewed. She complains of decrease in appetite, not wanting to eat very much. No nausea or vomiting. Tolerating her diet well. No abdominal pain, constipation, or diarrhea, headache, changes in vision, chest pain, pressure, tightness, shortness of breath, or cough. No other issues per nursing. Temperature 97.9, pulse 100, respiratory rate 20, blood pressure 105/57, 92% on 1 liter nasal cannula. GENERAL: The patient is awake, alert, oriented. Answering questions appropriately. LUNGS: Diminished breath sounds with crackles at the bases. HEART: S1, S2. Irregularly irregular. ABDOMEN: Soft, nontender, nondistended. EXTREMITIES: No edema. Laboratory data reviewed. ASSESSMENT AND PLAN: This is an 87-year-old female with a history of CVA with slurred speech, intracranial hemorrhage, atrial fibrillation, hypertension, hypothyroidism, osteoporosis, hiatal hernia, reflux, who presented to the emergency room with shortness of breath and confusion, was found to have right sided effusion and signs of decompensated congestive heart failure. The patient's daughter is unable to care for her at home. The patient is adamant about going home. She is currently alternate level of care (ALC), awaiting placement. CURRENT ISSUES: 1. Acute decompensated diastolic heart failure with pleural effusions, right greater than left. The patient has improved her oxygenation and diuresis. She is currently on Lasix 200 mg. Continue with fluid restriction, strict input and output and daily weights. 2. Severe MR and pulmonary hypertension contributing to hypoxic respiratory failure and requiring supplemental oxygen. 3. Acute metabolic encephalopathy, most likely secondary to urinary tract infection (UTI), which has been treated, had a full course of antibiotics. 4. Acute kidney injury on chronic kidney disease, baseline creatinine 1.2 to 1.4. Continue with diuretics for now. Monitor input, output, daily weights, and blood pressure. 5. Right shoulder pain with history of fracture. Chronic. 6. History of CVA with residual slurred speech. 7. Chronic atrial fibrillation. Currently on verapamil and Eliquis. 8. History of intracranial bleed. 9. Hypothyroidism. On levothyroxine. 10. Hypertension, stable with current medications. 11. Reflux and hiatal hernia. On Protonix. Awaiting placement. Transition to ALC status. MTDD
[2017-02-21] MEDS: METOPROLOL TART 12.5 MG PER 1/2 TAB PO SCH ×2 (12:00→18:00)
[2017-02-21] MEDS ORDERED: LEVO50TA5 PO (12:50)
[2017-02-21] MEDS ORDERED: FURO20TA2 PO (12:50)
[2017-02-21] MEDS ORDERED: MAG400TA PO (12:50)
[2017-02-21 14:00] VITALS: BP 127/60
[2017-02-21] MEDS ORDERED: DIGOXIN 0.125 MG TAB PO ONE (14:00)
[2017-02-21] MEDS: **NOTE PATIENT COMMENT** MISC XX SCH (21:00)
[2017-02-21 22:00] VITALS: BP 102/54
[2017-02-22 06:00] VITALS: BP 120/61
[2017-02-22 06:10] VITALS: BP 128/86
[2017-02-22] MEDS: LEVOTHYROXINE 50MCG TABLET (0.05MG) PO SCH (06:10)
[2017-02-22] MEDS: METOPROLOL TART 12.5 MG PER 1/2 TAB PO SCH ×2 (06:10)
[2017-02-22] MEDS: SLF 3 ML SYR IV SCH (06:11)
[2017-02-22 06:34] LABS: BASO # 0.1 10^3/uL (0.0-0.2); BASO % 0.7 % (0.0-1.0); EOS # 0.4 10^3/uL (0.0-0.50); IMMATURE GRANULOCYTE % 0.3 % (0-0); LYMPH # 1.3 10^3/uL (1.5-4.5); LYMPH % 18.1 % (24.0-44.0); MEAN CORPUSCULAR HEMOGLOBIN 31.5 pg (27.0-33.0); MEAN CORPUSCULAR HGB CONC 31.6 g/dl (32.0-36.5); MEAN CORPUSCULAR VOLUME 99.7 fl (80.0-96.0); MONO # 0.5 10^3/uL (0.0-0.8); NEUTROPHILS # 4.8 10^3/uL (1.8-7.7); NEUTROPHILS % 67.9 % (36.0-66.0); PLATELET COUNT, AUTOMATED 203 10^3/uL (150-450); RED CELL DISTRIBUTION WIDTH 13.6 % (11.5-14.5)
[2017-02-22 06:53] LABS: ALBUMIN 2.8 GM/DL (3.2-5.2); ALBUMIN/GLOBULIN RATIO 0.7 (1.00-1.93); BILIRUBIN,TOTAL 0.5 MG/DL (0.2-1.0); CALCIUM LEVEL 8.6 MG/DL (8.8-10.2); CREATININE FOR GFR 1.17 MG/DL (0.55-1.02); GLOMERULAR FILTRATION RATE 46.6 (>32); MAGNESIUM LEVEL 2.1 MG/DL (1.8-2.4); POTASSIUM SERUM 3.5 MEQ/L (3.5-5.1); TOTAL PROTEIN 6.8 GM/DL (6.4-8.2)
[2017-02-22] MEDS ORDERED: FURO20TA2 PO (07:18)
[2017-02-22] MEDS ORDERED: METO1TAB87 PO (07:19)
[2017-02-22] MEDS: SENOKOT S TAB PO SCH ×2 (09:00→10:20)
[2017-02-22] MEDS: VITAMIN D 1,000 INTERNATIONAL UNITS TABLET PO SCH (10:19)
[2017-02-22] MEDS: LACTOBACILLUS ACIDOPHILUS CAP (BACID) PO SCH ×2 (10:20→12:11)
[2017-02-22] MEDS: MAGNESIUM OXIDE 400 MG TAB (MAG-OX) PO SCH (10:20)
[2017-02-22] MEDS: LIDOCAINE 5% (LIDODERM) PATCH TD SCH (10:21)
[2017-02-22] MEDS: MULTIVITAMINS/MINERALS THERAP 1 TAB PO SCH (10:21)
[2017-02-22] MEDS: APIXABAN 2.5 MG TAB (ELIQUIS) PO SCH (10:21)
[2017-02-22] MEDS: PANTOPRAZOLE 40MG TAB (PROTONIX) PO SCH (10:21)
[2017-02-22] MEDS: NYSTATIN CREAM 15 GM EXT SCH (10:21)
[2017-02-22] MEDS: FUROSEMIDE 20 MG TAB PO SCH (10:21)
[2017-02-22] MEDS ORDERED: METOPROLOL TART 12.5 MG PER 1/2 TAB PO SCH (21:00)
--- NOTE | 2017-03-13 00:50 | DSES ---
DATE OF ADMISSION: 02/07/2017 DATE OF DISCHARGE: 02/22/2017 PRIMARY DISCHARGE DIAGNOSES: 1. Acute decompensated diastolic congestive heart failure (CHF) with pleural effusions, right greater than left. 2. Severe mitral regurgitation and pulmonary hypertension contributing to hypoxic respiratory failure requiring supplemental oxygen. 3. Acute metabolic encephalopathy secondary to urinary tract infection. 4. Urinary tract infection. 5. Acute kidney injury superimposed on chronic kidney disease. 6. Right shoulder pain with history of fracture. 7. History of CVA with residual slurred speech. 8. Chronic atrial fibrillation. 9. History of intracranial hemorrhage. 10. Hypothyroidism. 11. Hypertension. 12. Reflux and hiatal hernia. DISCHARGE MEDICATIONS: - Lasix 20 mg daily - Synthroid 50 mcg daily - magnesium oxide 400 twice a day - metoprolol 12.5 twice a day - acetaminophen 650 every four as needed for pain - Eliquis 2.5 twice a day - calcium citrate two tablets by mouth three times a day - multivitamin one tablet daily - Protonix 40 daily - Systane eye drops both eyes four times a day as needed - Prolia as directed - Crestor 10 daily - vitamin D 5000 units six times weekly CONSULTANTS DURING THIS ADMISSION: Dr. Ramy Gardiner, diversional therapist's assistant. PROCEDURES DURING THIS ADMISSION: Echocardiogram, ejection fraction (EF) 55-60%. Mild aortic regurgitation, severe mitral regurgitation, moderate pulmonary hypertension, small pericardial effusion with no evidence of cardiac tamponade. Triple-lumen catheter with right internal jugular vein triple-lumen placement 02/10/2017 due to hypotension. PRIMARY CARE PHYSICIAN: Evelyn Lainez. FISHERIES INSPECTOR: Dr. Parth Dixon. HOSPITAL COURSE: This is an 87-year-old female presented to the emergency room with confusion. No dizziness or fall. Shortness of breath for the past few months with a dry cough without fever or chills, chest pain, abdominal pain, nausea or vomiting. Patient was afebrile with normal white count. CT chest shows large right pleural effusion, moderate left pleural effusion and ground-glass densities compatible with alveolar infiltrate versus fibrosis and honeycombing cardiomegaly. CT of the head was negative. Urinalysis was positive for pyuria and bacteruria. Altered mental status was thought to be secondary to urinary tract infection (UTI) and hypoxia from pleural effusion. Patient was 94% 2 liters nasal cannula. Due to questionable pneumonia, patient was also placed empirically on Rocephin. She was anemic with hemoglobin of 10, MCV of 100 and had baseline chronic kidney disease of 1.5. She had complaints of right shoulder pain from previous right shoulder fracture. Due to severe hypotension with systolic pressure of 90/52, emergency room had given a dose of normal saline. Triple-lumen catheter was placed by Dr. Gardiner. Dr. Gardiner was consulted for hypotension, which was thought to be cardiogenic in nature due to CHF and bilateral pleural effusions. All antihypertensives and diuretics were held at that time. Echocardiogram shows no wall motion abnormalities. Patient was restarted back on Lasix and was started on loaded dose with strict intake and output (I and O) and daily weights and was restarted back on Eliquis. No ascites was noted on ultrasound of the liver. Despite large pleural effusions, no thoracentesis was sent as the patient had refused. She developed acute on chronic kidney disease with a peak creatinine 2.03, which improved to 1.17. Patient's admission weight was 59.09 kg and discharge weight 53.4 kg. Creatinine remained stable. Blood cultures, respiratory panel, methicillin-resistant Staphylococcus aureus (MRSA) screens, and urine culture were negative. Evaluation of anemia included stool for blood, which was also negative. LABORATORIES: On discharge: White count 7, hemoglobin 10, hematocrit 32, platelet count 203. Sodium 137, potassium 3.5, chloride 95, bicarbonate 40, BUN 28, creatinine 1.17. Microbiology: 02/07 urine culture contaminated. MRSA screen on 02/07 not identified. Respiratory panel 02/07 negative. Blood culture two sets 02/08 negative. Stool for blood 02/12 negative. IMAGING STUDIES: Chest CT on 02/07: A large right pleural effusion, moderate left pleural effusion, ground-glass density in middle lobe and lingula compatible with alveolar infiltrates versus fibrosis. Honeycombing right lower lobe compatible with fibrosis. CT of the head 02/07 no hemorrhage, acute infarct or mass. Old right frontal lobe infarct, old left caudate ganglion infarct, diffuse volume loss. Chest x-ray 02/14: Stable areas of increased lung markings in the perihilar and right base, marked cardiomegaly. No new infiltrate, improved aeration from most recent prior chest x-ray. Time spent on discharge 30 minutes.
== END 2017-02-22 13:05 | disposition home health service (06) | DRG 291 ==
LOC: M ED 12:14 → M ED INP 15:17 → M PCU 17:24 → M ICU 02-10 14:17 → M MSPAV 02-12 15:15
PROVIDERS: ADMIT General Practice; ATTEND General Practice
PROC: 02HV33Z Insertion of Infusion Device into Superior Vena Cava, Percutaneous Approach (ICD-10-PCS; principal; 2017-02-10)
DX: I13.0 Hypertensive heart and chronic kidney disease with heart failure and stage 1 through stage 4 chronic kidney disease, or unspecified chronic kidney disease (principal); G93.41 Metabolic encephalopathy; I50.31 Acute diastolic (congestive) heart failure; N17.9 Acute kidney failure, unspecified; J90 Pleural effusion, not elsewhere classified; F72 Severe intellectual disabilities; N39.0 Urinary tract infection, site not specified; N18.3 Chronic kidney disease, stage 3 (moderate); I34.0 Nonrheumatic mitral (valve) insufficiency; E03.9 Hypothyroidism, unspecified; K21.9 Gastro-esophageal reflux disease without esophagitis; I69.828 Other speech and language deficits following other cerebrovascular disease; I48.2 Chronic atrial fibrillation; Z79.899 Other long term (current) drug therapy; I27.20 Pulmonary hypertension, unspecified; I95.9 Hypotension, unspecified; D64.9 Anemia, unspecified; M81.0 Age-related osteoporosis without current pathological fracture; Z86.79 Personal history of other diseases of the circulatory system; Z79.01 Long term (current) use of anticoagulants; E83.42 Hypomagnesemia; I45.81 Long QT syndrome; E87.6 Hypokalemia

== ENCOUNTER 2017-03-30 15:36 | Inpatient (IN) | payer MEDICARE, BC ==
[2017-03-30 18:50] LABS: BASO # 0.1 10^3/uL (0.0-0.2); BASO % 0.7 % (0.0-1.0); EOS # 0.1 10^3/uL (0.0-0.50); EOS % 0.7 % (0.0-3.0); IMMATURE GRANULOCYTE % 0.3 % (0-0); LYMPH # 1.1 10^3/uL (1.5-4.5); LYMPH % 16.1 % (24.0-44.0); MEAN CORPUSCULAR HEMOGLOBIN 32.4 pg (27.0-33.0); MEAN CORPUSCULAR HGB CONC 31.7 g/dl (32.0-36.5); MEAN CORPUSCULAR VOLUME 102.1 fl (80.0-96.0); MONO # 0.5 10^3/uL (0.0-0.8); MONO % 7.6 % (0.0-5.0); NEUTROPHILS % 74.6 % (36.0-66.0); PLATELET COUNT, AUTOMATED 197 10^3/uL (150-450); RED CELL DISTRIBUTION WIDTH 15.2 % (11.5-14.5); WHITE BLOOD COUNT 6.7 10^3/uL (4.0-10.0)
[2017-03-30] MEDS: AZITHROMYCIN INJ 500 MG, VIAL MATE ADAPTER 1 EACH in D5W 250 ML IV (19:10)
[2017-03-30 19:16] LABS: LACTIC ACID SEPSIS PROTOCOL 1.7 MMOL/L (0.4-2.0)
[2017-03-30 19:17] LABS: ANION GAP 6 MEQ/L (8-16); BLOOD UREA NITROGEN 23 MG/DL (7-18); CALCIUM LEVEL 9.7 MG/DL (8.8-10.2); CARBON DIOXIDE LEVEL 37 MEQ/L (21-32); CHLORIDE LEVEL 98 MEQ/L (98-107); CREATININE FOR GFR 1.23 MG/DL (0.55-1.02); GLUCOSE, FASTING 95 MG/DL (83-110); POTASSIUM SERUM 3.8 MEQ/L (3.5-5.1); SODIUM LEVEL 141 MEQ/L (136-145)
[2017-03-30] MEDS: CEFTRIAXONE SOD 2 GM in APPROPRIATE DILUENT 1 EA IV (20:45)
[2017-03-30] MEDS: FUROSEMIDE 40 MG/4 ML VIAL (J1940) IV (21:30)
[2017-03-30] MEDS ORDERED: POLYVINYL ALCOHOL OPHTH SOLN 15 ML(LIQUITEARS) OU (22:15)
[2017-03-30] MEDS ORDERED: ACETAMINOPHEN TAB 650MG DOSE (2X325MG) PO (22:15)
[2017-03-30 22:50] LABS: ALBUMIN 3.5 GM/DL (3.2-5.2); ALBUMIN/GLOBULIN RATIO 0.95 (1.00-1.93); ALKALINE PHOSPHATASE 50 U/L (45-117); ALT/SGPT 18 U/L (12-78); AST/SGOT 21 U/L (7-37); BILIRUBIN,DIRECT 0.2 MG/DL (0.0-0.2); BILIRUBIN,TOTAL 0.5 MG/DL (0.2-1.0); TOTAL PROTEIN 7.2 GM/DL (6.4-8.2)
[2017-03-31] MEDS ORDERED: SLF 3 ML SYR IV (01:00)
[2017-03-31] MEDS: MAGNESIUM OXIDE 400 MG TAB (MAG-OX) PO ×3 (01:24→20:33)
[2017-03-31] MEDS: ROSUVASTATIN 10 MG TAB (CRESTOR) PO ×2 (01:24→20:33)
[2017-03-31] MEDS: FUROSEMIDE 20 MG/2 ML VIAL (J1940) IV ×4 (03:43→18:00)
[2017-03-31 05:41] LABS: MEAN CORPUSCULAR HEMOGLOBIN 32.4 pg (27.0-33.0); MEAN CORPUSCULAR HGB CONC 31.6 g/dl (32.0-36.5); MEAN CORPUSCULAR VOLUME 102.6 fl (80.0-96.0); PLATELET COUNT, AUTOMATED 184 10^3/uL (150-450); RED CELL DISTRIBUTION WIDTH 15.2 % (11.5-14.5); WHITE BLOOD COUNT 15.1 10^3/uL (4.0-10.0)
[2017-03-31] MEDS ORDERED: FUROSEMIDE 20 MG/2 ML VIAL (J1940) IV (06:00)
[2017-03-31] MEDS: SLF 3 ML SYR IV ×3 (06:00→20:34)
[2017-03-31 06:05] LABS: ANION GAP 7 MEQ/L (8-16); BLOOD UREA NITROGEN 24 MG/DL (7-18); CALCIUM LEVEL 9.2 MG/DL (8.8-10.2); CARBON DIOXIDE LEVEL 36 MEQ/L (21-32); CHLORIDE LEVEL 98 MEQ/L (98-107); CREATININE FOR GFR 1.38 MG/DL (0.55-1.02); GLOMERULAR FILTRATION RATE 38.5 (>32); GLUCOSE, FASTING 100 MG/DL (83-110); MAGNESIUM LEVEL 1.3 MG/DL (1.8-2.4); POTASSIUM SERUM 4.2 MEQ/L (3.5-5.1); SODIUM LEVEL 141 MEQ/L (136-145)
[2017-03-31 08:44] LABS: T UPTAKE 41 % (30-39); THYROXINE (T4) 7.2 UG/DL (4.5-12.0)
[2017-03-31] MEDS: HEPARIN SOD (PORCINE) 5000 UNITS/ML VIAL SC (09:00)
[2017-03-31] MEDS: POTASSIUM CHLORIDE 10 MEQ SR TABLET PO (09:08)
[2017-03-31] MEDS: MULTIVITAMINS/MINERALS THERAP 1 TAB PO (09:08)
[2017-03-31] MEDS: PANTOPRAZOLE 40MG TAB (PROTONIX) PO (09:08)
[2017-03-31] MEDS: LEVOTHYROXINE 100 MCG (0.1MG) VIAL IV (09:09)
[2017-03-31] MEDS ORDERED: IPRATROPIUM 0.5MG/ALBUTEROL 2.5MG INH SOL UD 3ML (DUONEB)(J7620) NEB (12:15)
[2017-03-31] MEDS: IPRATROPIUM 0.5MG/ALBUTEROL 2.5MG INH SOL UD 3ML (DUONEB)(J7620) NEB ×2 (13:32→20:50)
[2017-03-31] MEDS: AZITHROMYCIN INJ 500 MG, VIAL MATE ADAPTER 1 EACH in D5W 250 ML IV (18:37)
[2017-03-31] MEDS: APIXABAN 2.5 MG TAB (ELIQUIS) PO (20:33)
[2017-03-31] MEDS: CEFTRIAXONE SOD 1 GM in APPROPRIATE DILUENT 1 EA IV (20:33)
[2017-04-01] MEDS: IPRATROPIUM 0.5MG/ALBUTEROL 2.5MG INH SOL UD 3ML (DUONEB)(J7620) NEB ×3 (01:51→14:13)
[2017-04-01 05:10] LABS: MEAN CORPUSCULAR HEMOGLOBIN 32.4 pg (27.0-33.0); MEAN CORPUSCULAR VOLUME 101.3 fl (80.0-96.0); PLATELET COUNT, AUTOMATED 173 10^3/uL (150-450); RED CELL DISTRIBUTION WIDTH 15.7 % (11.5-14.5); WHITE BLOOD COUNT 16.1 10^3/uL (4.0-10.0)
[2017-04-01 05:21] LABS: ANION GAP 7 MEQ/L (8-16); BLOOD UREA NITROGEN 32 MG/DL (7-18); CARBON DIOXIDE LEVEL 33 MEQ/L (21-32); CHLORIDE LEVEL 96 MEQ/L (98-107); CREATININE FOR GFR 1.87 MG/DL (0.55-1.02); GLOMERULAR FILTRATION RATE 27.1 (>32); GLUCOSE, FASTING 120 MG/DL (83-110); MAGNESIUM LEVEL 1.4 MG/DL (1.8-2.4); POTASSIUM SERUM 4.3 MEQ/L (3.5-5.1); SODIUM LEVEL 136 MEQ/L (136-145)
[2017-04-01] MEDS: SLF 3 ML SYR IV ×2 (06:00→13:34)
[2017-04-01] MEDS: FUROSEMIDE 20 MG/2 ML VIAL (J1940) IV ×2 (06:00)
[2017-04-01] MEDS: LEVOTHYROXINE 100 MCG (0.1MG) VIAL IV (08:04)
[2017-04-01] MEDS: POTASSIUM CHLORIDE 10 MEQ SR TABLET PO (08:04)
[2017-04-01] MEDS: PANTOPRAZOLE 40MG TAB (PROTONIX) PO (08:04)
[2017-04-01] MEDS: MAGNESIUM OXIDE 400 MG TAB (MAG-OX) PO (08:05)
[2017-04-01] MEDS: MULTIVITAMINS/MINERALS THERAP 1 TAB PO (08:05)
[2017-04-01] MEDS: MAG SULF 1GM/100ML (MAG RUN) 1 GM in APPROPRIATE DILUENT 1 EA IV (08:05)
[2017-04-01] MEDS: METOPROLOL TART 12.5 MG PER 1/2 TAB PO ×2 (12:00→18:07)
[2017-04-01] MEDS: AZITHROMYCIN INJ 500 MG, VIAL MATE ADAPTER 1 EACH in D5W 250 ML IV (18:06)
[2017-04-01] MEDS ORDERED: EPINEPHrine 1MG/10ML SYRINGE 1.5IN (19:48)
[2017-04-02] MEDS ORDERED: FUROSEMIDE 20 MG TAB PO (21:00)
== END 2017-04-01 19:49 | disposition expired | DRG 291 ==
LOC: M ED 15:36 → M ED INP 22:22 → M PCU 23:54
DX: I13.0 Hypertensive heart and chronic kidney disease with heart failure and stage 1 through stage 4 chronic kidney disease, or unspecified chronic kidney disease (principal); J18.9 Pneumonia, unspecified organism; I50.31 Acute diastolic (congestive) heart failure; N17.9 Acute kidney failure, unspecified; J90 Pleural effusion, not elsewhere classified; I34.0 Nonrheumatic mitral (valve) insufficiency; I25.10 Atherosclerotic heart disease of native coronary artery without angina pectoris; E03.9 Hypothyroidism, unspecified; I48.2 Chronic atrial fibrillation; N18.9 Chronic kidney disease, unspecified; K21.9 Gastro-esophageal reflux disease without esophagitis; E78.5 Hyperlipidemia, unspecified; Z86.73 Personal history of transient ischemic attack (TIA), and cerebral infarction without residual deficits; Z79.01 Long term (current) use of anticoagulants; Z79.899 Other long term (current) drug therapy; K44.9 Diaphragmatic hernia without obstruction or gangrene